=== PATIENT | male | born 1955 | race Caucasian/White ===

== ENCOUNTER → 2018-03-29 07:00 | Outpatient (CLI) | payer OTHER, SELFPAY ==
[2018-03-29 07:20] LABS: Absolute Lymphocyte Count 2.08 X10^3/ul (0.83-4.51); Absolute Neutrophil Count 2.7 X10^3/uL (2.0-7.7); Basophil# 0.06 X10^3/uL; Eosinophil# 0.25 X10^3/uL; Eosinophils% 4.1 % (0-5); Hematocrit 43.2 % (40-54); Hemoglobin 15.3 g/dl (13.0-16.5); Lymphocyte # 2.08 X10^3/ul (4.0); Lymphocyte % 34.2 % (19-41); Mean Corp Hgb Conc 35.4 g/gl (32-36); Mean Corpuscular Hgb 35.3 pg (27.0-32.0); Mean Corpuscular Volume 99.5 fL (80-94); Mean Platelet Vol. 10.7 fl (6.2-12.0); Monocyte# 0.95 X10^3/uL; Monocyte% 15.6 % (0-10); Neutrophil # 2.73 X10^3/uL (2.7-7.7); Neutrophil % 44.8 % (47-70); Platelet Count 202 K/mm3 (150-450); RBC Distribution Width CV 12.3 % (11.6-14.6); RBC Distribution Width SD 44.6 fl (35.1-43.9); Red Blood Count 4.34 M/mm3 (4.6-6.2); White Blood Count 6.1 K/mm3 (4.4-11.0)
[2018-03-29 07:22] LABS: POSITIVE COUNT NO; POSITIVE DIFFERENTIAL NO; POSITIVE MORPHOLOGY NO
== END ==
PROVIDERS: Family Provider Family Medicine; PCP Family Medicine; Visit Provider Family Medicine
DX: I95.1 Orthostatic hypotension (principal)
CPT/HCPCS: 82533; 85025

== ENCOUNTER → 2018-10-15 10:08 | Outpatient (CLI) | payer OTHER, SELFPAY ==
[2018-10-15 11:43] LABS: ALB/GLOB Ratio 0.9 RATIO (0.9-2.4); AST(SGOT) 34 U/L (15-37); Alanine Aminotransfer ALT/SGPT 56 U/L (16-61); Albumin, Serum 3.7 g/dL (3.2-5.0); Alkaline Phosphatase 72 U/L (45-117); Anion Gap 11 (5-15); BUN 11 mg/dL (7-18); BUN/Creat Ratio 11.1 RATIO (10-20); Chloride 102 mmol/L (98-107); Cholesterol 220 mg/dL (200); Creatinine, Serum 0.99 mg/dL (0.70-1.30); EST Glomerular Filtration Rate 80 mL/min (>60); Est Glom Filt Rate - Afr Amer 97 mL/min (>60); Globulin 3.9 g/dL (2.2-4.2); Glucose 105 mg/dL (74-106); High Density Lipoprotein 56 mg/dL; Potassium 4.7 mmol/L (3.5-5.1); Protein, Total 7.6 g/dL (6.4-8.2); Sodium Level 139 mmol/L (136-145); Triglycerides 105 mg/dL; Very Low Density Lipoprotein 21 mg/dL (5-40)
== END ==
PROVIDERS: Family Provider Family Medicine; PCP Family Medicine; Referring Provider Family Medicine; Visit Provider Family Medicine
DX: I10 Essential (primary) hypertension (principal)
CPT/HCPCS: 36415; 80053; 80061

== ENCOUNTER → 2018-11-28 16:07 | Outpatient (CLI) | payer MEDICARE, OTHER, SELFPAY ==
[2018-03-27 16:16] VITALS: BMI 35.6
--- NOTE | 2018-11-28 16:18 | RAD_ITS ---
We are attempting to reach Sanaz Renner to discuss findings. An addendum with communication details will be sent when the communication is complete. STUDY: X-RAY - RIGHT HIP REASON FOR EXAM: Male, 63 years old. Fall one week ago, right hip pain TECHNIQUE: 2 views of the hip. COMPARISON: None. FINDINGS: There is an acute, nondisplaced right femoral subcapital neck fracture. There is no dislocation. The left hip is intact. Remaining osseous structures are intact. Normal visualized superior and inferior pubic rami and ischial tuberosities. RAD/HIP, UNI W/ Pelvis 2-3 Views IMPRESSION: Acute, nondisplaced right femoral subcapital neck fracture. No dislocation. Electronically Signed: Colette Kaba, at 16:42 EDT Tel , Service support ,
== END ==
PROVIDERS: Family Provider Family Medicine; PCP Family Medicine; Referring Provider Family Medicine; Visit Provider Family Medicine
DX: M25.559 Pain in unspecified hip (principal)
CPT/HCPCS: 73502

== ENCOUNTER 2018-11-30 04:44 | Inpatient (IN) | payer MEDICARE, OTHER, SELFPAY ==
[2018-11-30] VITALS (16 sets, daily range): BP systolic 101–156; BP diastolic 60–90; PULSE 49–85; RESP 16–18; TEMP 36.5–36.9; O2SAT 90–97; BMI 36.6; BMI 36.2; BMI 36.3; BMI 35.8
--- NOTE | 2018-11-30 05:08 | EKG12_ITS ---
Test Reason : HIP FX Blood Pressure : / mmHG Vent. Rate : 054 BPM Atrial Rate : 054 BPM P-R Int : 196 ms QRS Dur : 094 ms QT Int : 422 ms P-R-T Axes : 013 000 016 degrees QTc Int : 400 ms Sinus bradycardia Otherwise normal ECG Confirmed by KRISTIN ANTONIO, JAZMYN ([id number]), news videotape editor VIRI EDOUARD ([id number]) on 12/03/2018 11:45:08 AM Referred By: Emanuel Yo Confirmed By:JAZMYN FOSTER MD
--- NOTE | 2018-11-30 05:08 | RAD_ITS ---
STUDY: X-RAY - RIGHT HIP REASON FOR EXAM: Male, 63 years old. Patient fell TECHNIQUE: 2 views of the hip. COMPARISON: None. FINDINGS: There is a mid cervical fracture of the proximal femur with varus deformity. The hip joint looks well maintained Electronically Signed: Kendall Ag MD at 5:55 EDT Tel , Service support , RAD/HIP, UNI W/ Pelvis 2-3 Views
--- NOTE | 2018-11-30 05:08 | RAD_ITS ---
STUDY: X-RAY CHEST REASON FOR EXAM: Male, 63 years old. Cough TECHNIQUE: 1 view COMPARISON: None. FINDINGS: The lungs are clear and expanded. There is no demonstrated pleural abnormality. Normal size heart. Normal mediastinum and simone. Normal visualized pulmonary arteries. Normal visualized aortic arch and descending thoracic aorta. Normal visualized thoracic spine. Normal visualized ribs, clavicles, and shoulders. There is no demonstrated abnormality of the visualized soft tissue structures of the upper abdomen. RAD/Chest 1 View (Portable) IMPRESSION: Normal x-ray examination of the chest. No acute findings in the lungs Electronically Signed: Kendall Ag MD at 5:54 EDT Tel , Service support ,
[2018-11-30 05:30] LABS: Absolute Lymphocyte Count 1.53 X10^3/ul (0.83-4.51); Basophil# 0.05 X10^3/uL; Basophil% 0.8 % (0-1); Eosinophils% 6.7 % (0-5); Hematocrit 45.7 % (40-54); Hemoglobin 15.5 g/dl (13.0-16.5); Lymphocyte # 1.53 X10^3/ul (4.0); Lymphocyte % 25.7 % (19-41); Mean Corp Hgb Conc 33.9 g/gl (32-36); Mean Corpuscular Hgb 34.2 pg (27.0-32.0); Mean Corpuscular Volume 100.9 fL (80-94); Mean Platelet Vol. 10.2 fl (6.2-12.0); Monocyte# 0.96 X10^3/uL; Monocyte% 16.1 % (0-10); Neutrophil # 2.99 X10^3/uL (2.7-7.7); Neutrophil % 50.4 % (47-70); Platelet Count 207 K/mm3 (150-450); RBC Distribution Width CV 12.6 % (11.6-14.6); Red Blood Count 4.53 M/mm3 (4.6-6.2)
[2018-11-30 05:32] LABS: POSITIVE COUNT NO; POSITIVE DIFFERENTIAL NO; POSITIVE MORPHOLOGY NO
[2018-11-30 05:38] LABS: International Normalized Ratio 1.1; Prothrombin Time (Protime)PT. 13.9 SECONDS (11.7-14.9)
--- NOTE | 2018-11-30 05:40 | HP.PCM_ITS ---
Problem List (1) Hip fracture, right Status: Acute Qualifiers: Encounter type: initial encounter Fracture type: closed Qualified Code(s): S72.001A - Fracture of unspecified part of neck of right femur, initial encounter for closed fracture (2) Hyperlipemia Status: Chronic History of Present Illness Date of Admission: 11/30/18 Chief Complaint: right hip fracture on outpatient x-ray The patient is a 63 year old M who presents with right hip fracture on outpatient x-ray. About a week ago while at [place] patient tripped over and fell in his condo while leaving a room to the kitchen. X-ray at urgent care at [place] was unremarkable. Patient saw a specialist at [place] who thought patient may be having hairline fracture. Following pain Patient acquired a cane which he used to walk. Patient continued to have progressively worsening excruciating pain at his right hip. He describes his pain as 10 out of 10. The pain worsens with standing and it improves with lying. His pain is is improved with sitting. He describes his pain as sharp with greatest intensity at the right groin and radiating to his right leg. After the first episode of fall , on a later day patient again lost his balance whiles at the bathroom and fell on the bathtub. When he returned to [place], [place] he saw his PCP who ordered another x-ray. The x-ray showed a fracture of the right hip for which he was referred to an orthopedic surgeon. Later he got a call from his PCPs office to come to the emergency department for the right hip fracture. At the emergency department a repeat x-ray showed mid cervical fracture of the proximal femur with varus deformity. Emergency department doctor discussed the case with Dr. Avila, orthopedic surgeon who is interested in seeing the patient but wanted internal medicine to admit patient. Past Medical History Past Medical History (Chronic Problems): Chronic Problems (Last Updated 11/30/18 @ 06:42 by Isreal Browning MD) Hyperlipemia (Chronic) Medical History: Medical History (Last Reviewed 11/30/18 @ 06:59 by Isreal Browning MD) Hyperlipemia (Chronic) E78.5 HTN (hypertension) I10 Allergies No Known Allergies Allergy (Unverified 11/30/18 04:51) Home Medications: Ambulatory Orders Medication Instructions Recorded Lisinopril [Zestril] 10 mg PO DAILY 11/30/18 Surgical History: Surgical History (Last Reviewed 11/30/18 @ 06:59 by Isreal Browning MD) History of left knee replacement Z96.652 history of broken tail bone Lives: Spouse/ Significant Other Smoking Status: Never smoker - *Family History Maternal Family History: Family History (Last Reviewed 11/30/18 @ 06:59 by Isreal Browning MD) Father Blood clot in vein Mother Heart disease Brother Heart disease Review of Systems Constitutional: Denies: Chills, Fever, Weight Change HEENT: Denies: Head Aches, Sinus Congestion, Sinus Drainage Cardiovascular: Denies: Chest Pain, Palpitations Respiratory: Denies: Cough, Shortness of breath at rest, Sputum production Gastrointestinal: Denies: Abdominal Pain, Nausea, Vomiting Genitourinary: Denies: Dysuria Musculoskeletal: Reports: Joint Pain - R hip, Joint Tenderness - R hip Skin: Denies: Rash, Wounds Neurological: Denies: Numbness, Tingling, Focal weakness Psychiatric: Denies: Anxiety, Depression, Homicidal Ideations, Suicidal Ideations Hematologic/ Lymphatic: Denies: Easy Bruising, Easy Bleeding VTE Information - Inpt Only VTE Present on Admission: No VTE Mechan Device Prophylaxis: SCD's VTE Pharm Prophylaxis ordered?: No Patient Problems: Active and Suspected Problems (Last Updated 11/30/18 @ 06:42 by Isreal Browning MD) Hip fracture, right (Acute) - Physical Exam General: Alert, Oriented x3, Cooperative HEENT: Atraumatic, PERRLA, EOMI, Normocephalic Neck: Supple, No JVD, Negative Carotid Bruits Lungs: Clear to auscultation, Normal air movement Cardiovascular: Regular rate, No murmurs Abdomen: Bowel Sounds Present, Soft, Non Tender Extremities: No edema, Capillary Refill Less than 3 Seconds Skin: No rashes, No breakdown Musculoskeletal: Tenderness - R hip Neurological: Cranial nerves II-XII grossly intact Psych/Mental Status: Normal Affect, Appropriate Vital Signs Temp Pulse Resp BP Pulse Ox 98.4 F 55 L 18 153/76 H 97 11/30/18 04:45 11/30/18 04:45 11/30/18 04:45 11/30/18 04:45 11/30/18 04:45 Oxygen Delivery Method Room Air Weight: 119.12 kg Body Mass Index (BMI) 36.6 Laboratory Tests Past 24 Hrs 11/30/18 11/30/18 11/30/18 05:15 05:15 05:15 WBC 6.0 RBC 4.53 L Hgb 15.5 Hct 45.7 MCV 100.9 H MCH 34.2 H MCHC 33.9 RDW 12.6 RDW Differential 47.0 H Plt Count 207 MPV 10.2 Immature Gran % (Auto) 0.300 Neut % (Auto) 50.4 Lymph % (Auto) 25.7 [place] % (Auto) 16.1 H Eos % (Auto) 6.7 H Baso % (Auto) 0.8 Absolute Neuts (auto) 3.0 Absolute Lymphs (auto) 1.53 Total Counted Not Reportable PT Pending INR Pending Sodium Pending Potassium Pending Chloride Pending Carbon Dioxide Pending Anion Gap Pending BUN Pending Creatinine Pending Est GFR (MDRD) Af Amer Pending Est GFR (MDRD) Non-Af Pending BUN/Creatinine Ratio Pending Glucose Pending Calcium Pending Assessment/Plan All Active Problems (Last Updated 11/30/18 @ 06:42 by Isreal Browning MD) Hip fracture, right (Acute) The patient is a 63 year old M who presents with right hip fracture on outpatient x-ray after a fall and with a confirmed fracture on repeat x-ray on presentation. Acute fracture of neck of femur. Independent review of hip x-ray (11/30/18) confirms fracture of neck of right femur. Review of records of x-ray taken on 11/28/2018 confirmed similar findings as above. Patient reports taking oxycodone at home. Will continue oxycodone as needed and add morphine as needed too. Tylenol as needed for mild pain. So far whiles on oxycodone his last bowel movement was a day before his presentation. His yet bowels yet to move on the day of presentation. Zofran as needed for nausea while on narcotics. We will keep patient n.p.o. and will hydrate with normal saline IV infusion Emergency department doctor ordered a chest x-ray preoperatively for procedure. EKG showed sinus bradycardia which is unchanged from previous EKGs. We will put patient on MedSur telemetry. Patient has no complaint of any chest pain or shortness of breath. He has no any history of cardiac disease except hypertension. By the revised cardiac risk index patient scored 0 points for this moderate risk procedure. His 30-day risk of , NE or cardiac arrest is 3.9%. Orthopedic Surgery consulted. HTN On presentation his blood pressure was not within goal Lisinopril continued Trend blood pressure and adjust blood pressure medication. DVT prophylaxis: SCD for now. Code Visit Inpatient E&M: 89125 Init Hosp L3
[2018-11-30 05:46] LABS: Anion Gap 5 (5-15); BUN 18 mg/dL (7-18); BUN/Creat Ratio 15.9 RATIO (10-20); Calcium,Total 8.7 mg/dL (8.5-10.1); Chloride 102 mmol/L (98-107); Creatinine, Serum 1.13 mg/dL (0.70-1.30); EST Glomerular Filtration Rate 69 mL/min (>60); Est Glom Filt Rate - Afr Amer 84 mL/min (>60); Estimated Creatinine Clearance 69.41 ml/min; Glucose 105 mg/dL (74-106); Potassium 4.6 mmol/L (3.5-5.1); Sodium Level 137 mmol/L (136-145)
--- NOTE | 2018-11-30 05:48 | ED.DCSUM_ITS ---
- ER Visit Summary Date of Service: 11/30/18 Chief Complaint: Right hip fracture History of Present Illness: The patient is a 63 M who presents with a right hip fracture. He had a mechanical fall when he tripped over a curb 1 week ago in [place]. He was seen at an urgent care and x-rays were reported negative. He has been ambulating with a walker since that time. He saw his primary care physician and had repeat x-rays which showed a femoral neck fracture. He was was referred to orthopedics. When orthopedics saw his x-rays he was advised to go to the emergency department to be admitted. His pain is only 5 out of 10. He denies any other injuries. Physical Examination: Afebrile vitals unremarkable Heart regular rate and rhythm Lungs clear Abdomen soft Right lower extremity shortened and rotated Sensation intact to light touch Palpable dorsalis pedis pulses Alert Test Results: EKG shows sinus rhythm at a rate of 54. Repeat hip x-ray, chest x-ray, medical clearance laboratory studies including CBC BMP INR normal. Emergency Department Course and Treatment: Patient declined any analgesics here. I spoke to the orthopedic surgeon who sent him in, Dr. Quinones who notes that he will be out of town and was not transportation dispatcher and has not yet seen this patient so referred to the other orthopedic group. I spoke to Dr. Avila who will see the patient and plans for operative intervention today. Patient admitted under the hospitalist service. Treatment Plan: [] Disposition: Admit Impression: Right hip fracture This note was generated with [employer] dictation software. It may contain incorrect words, spelling, and punctuation that were not noted in review of the chart prior to signing ED Disposition - Plan for ED Patient: Referrals: Emanuel Yo MD [Primary Care Provider] -
[2018-11-30] MEDS: Lactated Ringers 1,000 ML 75 ML IV ×2 (06:55→19:31)
[2018-11-30] MEDS: Morphine 2 MG/ML Syringe IV (10:01)
--- NOTE | 2018-11-30 11:18 | CASEMGMT ---
Addendum entered and electronically signed by Vivian Russell 11/30/18 12:03: Reviewed and approve [employer] student documentation below. -CORTEZ Garner, SUPERVISOR AREA Original Note: Social Work Note Date and Time of Referral:11/30/18 1000am Referred By: Nurse Executive Cyber Leader MS3 Date and Time of Intervention: 11/30/18 1030am Reason for referral: hip fracture Informant: medical record and patient Judson Martinez Personal Status Living arrangements: lives with at home Education: patient reported to have associates degree and able to read, write, and understand. Employment: self-employed seymour : no service history Family Dynamics/Relationships: patient is . no hsitory of DV. patients had 4 daughters and 1 son. Support System: patient identified entire family as support system Medical History and Functioning Medical History and reason for admission: hip fracture; previous left knee replacement; genetic factor 5 blood clotting issue. ADLs prior to admission: independent with no equipment needed. Able to drive regularly. Programs/Agencies involved: patient is not involved with any agencies/programs. Substance Abuse History and Current Pattern of Use: patient identified self as non-user illicit drugs and uses alcohol socially. Alcohol: social user Marijuana: denies Heroin: denies Methamphetamine: denies Cocaine: denies prescription drugs: denies tobacco: denies Mental Health History and Current Cognitive Status Diagnoses: patient has not received any mental health diagnoses. Current Stressors: patient denied any current stressors at this time. SI or HI: patient denied any history past or present of suicidal thoughts/plans/attempts Medications: was not addressed with patient. Current cognitive/Mental Status: patient is orientated to person, place, situation, and time. Mood and affect were stable, calm , and pleasant. Patient engaged in conversation and answered questions appropriately. Motor activity was limited as patient was laying in bed. Speech and thought process were appropriate. Patient's identified concerns: patient has no concerns at this time. Interventions: surgery is planned for patient. PT/OT assessment to follow. Patient and family did not request any other needs at this time. Plan: Patient plans to undergo surgery. Patient is open to rehab if needed and will wait to see how PT/OT assessment goes. Patient mentioned preference for outpatient due to experience with knee replacement but open to both. -Jillian Mcmahon, [employer] Student Service Liaison Representative.
--- NOTE | 2018-11-30 11:56 | CASEMGMT ---
Social Work Note LEXY spoke with Ashly, social welfare clerk student who states pt is agreeable to [facility] at discharge. LEXY placed a call to Yolande with [facility] who states she is able to accept pt on [facility] Monday. Pt is scheduled to have surgery today and will work with PT/OT after surgery. This worker will be at [facility] tomorrow and will update pt on acceptance to [facility] and confirm pt is still agreeable to [facility]. Plan: [facility] Monday Evie Lau BISQUE BRUSHER, SOLUTIONS ANALYST
[2018-11-30] MEDS: Lisinopril 10 MG Tablet PO (14:55)
--- NOTE | 2018-11-30 15:00 | RAD_ITS ---
STUDY: X-RAY - RIGHT HIP REASON FOR EXAM: Male, 63 years old. Hip replacement TECHNIQUE: 2 C-arm views of the hip. COMPARISON: None. FINDINGS: 2 views from the OR show a right hip arthroplasty with a grossly satisfactory appearance on this single frontal projection. Correlate with procedure note. Electronically Signed: Denton Elder MD at 14:02 EDT , Service support , RAD/Hip 1 view with Pelvis
--- NOTE | 2018-11-30 16:26 | CON.PCM_ITS ---
Problem List (1) Hypertension Status: Chronic Reason for Consult Date of Consultation: 11/30/18 Reason for Consultation: Right hip pain. Requested by Dr. Steinberg History of Present Illness: The patient is a 63 year old M with history of hypertension. He does have diet- controlled hyperlipidemia takes no medications. Presents today after being on vacation last week in [place] where he sustained a fall. Patient was evaluated in the emergency department and found to have negative x-rays per reports. He subsequently fell since returning home. He was seen by his primary care doctor in the office who ordered new x-rays. Found to have a femoral neck fracture. Patient was instructed by his PCP to follow-up with orthopedics. Due to the pain and inability to ambulate he presented to the emergency department. Patient reports 10 out of 10 pain with ambulation pain is relieved with bed rest and medications. He has been using a walker or a cane for ambulation. Prior to this he is otherwise been healthy with no activity limitations. He remains an active individual. He does have obesity. He lives at home with his . Past Medical History Past Medical History (Chronic Problems): Chronic Problems (Last Reviewed 11/30/18 @ 06:59 by Isreal Browning MD) Hypertension (Chronic) Hyperlipemia (Chronic) Medical History: Medical History (Last Reviewed 11/30/18 @ 06:59 by Isreal Browning MD) Hyperlipemia (Chronic) E78.5 HTN (hypertension) I10 Allergies No Known Allergies Allergy (Unverified 11/30/18 04:51) Home Medications: Ambulatory Orders Medication Instructions Recorded Lisinopril [Zestril] 10 mg PO DAILY 11/30/18 Surgical History: Surgical History (Last Reviewed 11/30/18 @ 06:59 by Isreal Browning MD) History of left knee replacement Z96.652 history of broken tail bone Surgical History: no surgical history, - Psychiatric History: No pertinent psych hx Lives: Spouse/ Significant Other Smoking Status: Never smoker Tobacco Use: Non-smoker Alcohol: Occasional Drugs: None - *Family History Maternal Family History: Family History (Last Reviewed 11/30/18 @ 06:59 by Isreal Browning MD) Father Blood clot in vein Mother Heart disease Brother Heart disease Review of Systems Constitutional: Denies: Chills, Fever, Weight Change HEENT: Denies: Head Aches, Sinus Congestion, Sinus Drainage Cardiovascular: Denies: Chest Pain, Palpitations Respiratory: Denies: Cough, Shortness of breath at rest, Sputum production Gastrointestinal: Denies: Abdominal Pain, Nausea, Vomiting Genitourinary: Denies: Dysuria Musculoskeletal: Reports: Joint Pain, Joint Tenderness Skin: Denies: Rash, Wounds Neurological: Denies: Numbness, Tingling, Focal weakness Psychiatric: Denies: Anxiety, Depression, Homicidal Ideations, Suicidal Ideations Hematologic/ Lymphatic: Denies: Easy Bruising, Easy Bleeding Patient Problems: Active and Suspected Problems (Last Reviewed 11/30/18 @ 06:59 by Isreal Browning MD) Hip fracture, right (Acute) Objective: Hip x-rays of the right hip from November 28 and November 30 show transcervical femoral neck fracture with progressive displacement. Hip joint shows joint space narrowing with subchondral sclerosis, marginal osteophyte formation and a subchondral cyst on the lateral weightbearing portion of the acetabulum. - Physical Exam General: Alert, Oriented x3, Cooperative Extremities: - - Right lower extremity: Skin clean, dry, and intact. Limb is shortened and externally rotated Motor is intact dorsiflexion, EHL and plantar flexion. Sensation is intact to light touch saphenous, linnette,l superficial peroneal, deep peroneal and tibial distributions. Calves are soft and supple. Vital Signs Temp Pulse Resp BP Pulse Ox 98.5 F 58 L 16 140/80 H 93 11/30/18 14:40 11/30/18 14:50 11/30/18 14:40 11/30/18 14:40 11/30/18 14:40 Oxygen Delivery Method Room Air Weight: 256 lb 9.889 oz Body Mass Index (BMI) 35.8 Intake and Output for Last 24 Hours 11/28/18 11/29/18 11/30/18 23:59 23:59 23:59 Output Total 650 / 650 Balance -650 / -650 Laboratory Tests Past 24 Hrs 11/30/18 11/30/18 11/30/18 05:15 05:15 05:15 WBC 6.0 RBC 4.53 L Hgb 15.5 Hct 45.7 MCV 100.9 H MCH 34.2 H MCHC 33.9 RDW 12.6 RDW Differential 47.0 H Plt Count 207 MPV 10.2 Immature Gran % (Auto) 0.300 Neut % (Auto) 50.4 Lymph % (Auto) 25.7 [place] % (Auto) 16.1 H Eos % (Auto) 6.7 H Baso % (Auto) 0.8 Absolute Neuts (auto) 3.0 Absolute Lymphs (auto) 1.53 Total Counted Not Reportable PT 13.9 INR 1.1 Sodium 137 Potassium 4.6 Chloride 102 Carbon Dioxide 30.0 Anion Gap 5 BUN 18 Creatinine 1.13 Estim Creat Clear Calc 69.41 Est GFR (MDRD) Af Amer 84 Est GFR (MDRD) Non-Af 69 BUN/Creatinine Ratio 15.9 Glucose 105 Calcium 8.7 Assessment/Plan All Active Problems (Last Reviewed 11/30/18 @ 06:59 by Isreal Browning MD) Hip fracture, right (Acute) Right hip primary osteoarthritis with acute displaced transcervical femoral neck fracture. Natural history of the disease processes and treatment options were discussed the patient. Based on patient's displacement, age, activity level and ante cedent osteoarthritis I have recommended a total hip replacement done acutely due to the displaced femoral neck fracture. Risks and benefits of the procedure were discussed the patient including but not limited to blood loss, DVTs, PEs, neurovascular damage, infection, general risk of anesthesia including loss of life. I did explain to the patient that in the face of a fracture risk of dislocation is higher with total hip replacement. He demonstrates an understanding wishes to proceed. He is able signed informed consent and medical clearance has been obtained. Plan is to proceed with surgery. Qiana Woods on- call to the operating room. [facility] Office:
[2018-11-30] MEDS: Cefazolin 2 GM in 0.9% Normal Saline 100 ML IV (16:40)
--- NOTE | 2018-11-30 17:11 | PCM.HOSP.N ---
Hospitalist Note Patient was seen and examined today, he will undergo ORIF of his right hip today. Patient appears medically stable at this time, I talked with his family also who were in the room today. Patient will be monitored postop, he does take medications for blood pressure.
--- NOTE | 2018-11-30 18:14 | PCM.OPRPT ---
Problem List (1) Hypertension Status: Chronic Report of Operation Date of Procedure: 11/30/18 Pre-Operative Diagnosis: Right hip primary osteoarthritis. Right acute transcervical femoral neck fracture Post-Operative Diagnosis: Right hip primary osteoarthritis. Right acute transcervical femoral neck fracture Surgery/Procedure Performed:: Right direct anterior total hip replacement Description of Surgical Findings:: Stable hip with equal leg length regional vice president life sales: Hilda Mackenzie Type of Anesthesia:: Spinal Anesthesiologist: Apurva Choi Special Medications: 2 g Ancef, 2 g of TXA in the wound at completion of case, joint cocktail (5 mg Duramorph, 30 mL of 0.5% Ropivicaine, 1000 units of epinephrine, 30 mg of Toradol) Specimen's removed: Bony cuts Estimated Blood Loss (mL): 250 Fluids Replaced: 2 L crystalloid Description of Procedure: Components used: 1. Accolade 2 Shaheen femoral stem size 7 127? 2. Shaheen trident 2 acetabular shell size 52 mm 3. Shaheen X3 polyethylene e 4. Shaheen Biolox delta 36mm, -2.5mm femoral head Brief history operative indications: 63 yo M who fell 1 week ago in [place] and sustained a subsequent fall. Presented to the PCPs office and had a displaced transcervical femoral neck fracture. X-rays were also consistent with osteoarthritis including joint space narrowing, osteophyte formation and subchondral cysts. Total hip replacement was discussed with the patient with risks and benefits including but not limited to blood loss, DVTs, PEs, neurovascular damage, dislocation, general risks of anesthesia including loss of life. Patient demonstrated an understanding medical clearance is obtained the patient was consented for surgery. Procedure: On the date of procedure the patient's R hip was marked in the preoperative area. Patient was then taken back to the operating room where anesthesia assumed control of the C-spine and airway and administered anesthetic. Patient was transferred to the operating table and placed in the supine position. The hips were placed at the break of the bed and a sacral bump was placed. The R lower extremity was then prepped out in a sterile fashion using chlorhexidine while the surgeon scrubbed. The PA was vital in the positioning of the patient. Upon reentering the room the R lower extremity was draped in the standard orthopedic fashion and the incision was marked. A timeout was called and everyone agreed upon the side, the site, the procedure be performed, antibody given, and patient's identity. At this time incision was made through skin, subcutaneous tissue, and fat down to fascia. The fascia was then incised and the TFL was retracted laterally. A retractor was placed on the lateral border of the femoral neck. Attention was directed to the inferior portion of the approach and all crossing vessels were identified and appropriately coagulated. A retractor was then placed on the medial portion of the femoral neck. The anterior capsule was then cleared of all soft tissue and then H shaped capsulotomy was made. The retractors were then placed inside the capsule. The femoral neck was identified and a cleanup cut was made. At this time a power corkscrew was used to remove the femoral head. Attention was then turned toward the acetabulum where the soft tissues were appropriately retracted and the acetabulum was sequentially reamed to 52 mm. A 52 mm cup was then selected and impacted into place. Acetabular liner was impacted into place and locking mechanism was verified. The position of the acetabular cup was then verified under live fluoroscopy. Attention was then turned to the femur. Soft tissue releases on the medial and lateral femoral neck were appropriately done, the leg was externally rotated and lateralized. A Dorado retractor was placed medially and proximally to the greater trochanter this allowed appropriate visualization and exposure of the femoral canal. Rongeour was then used to remove excess lateral bone. A canal finder and entry broach were used to open the proximal canal. Once we verified we were down the femoral canal we subsequently broached up to a size 7 femur. The appropriate neck was placed in the previously selected head was trialed with a -2.5 mm neck. Traction was pulled and the hip was reduced with internal rotation. Once it was appropriately reduced and stability was checked. There was minimal shuck, equal leg lengths and appropriate stability with hyperextension and external rotation as well as with 90? flexion and internal rotation. Fluoroscopy was then also used to verify the position of the components and leg lengths using the contralateral side for comparison. The trial components were then dislocated the proximal femur was again exposed and the components were removed from the wound. The final components were verified and opened. The wound was copiously irrigated out with normal saline. The acetabulum was checked for any residual debris. The final components were placed and impacted. Traction and internal rotation were again used to reduce the hip. After adequate reduction the hip remained stable with appropriate leg lengths. The final components were once again checked with live fluoroscopy and were found to be satisfactory. The wound was then copiously irrigated with normal saline once more, and hemostasis was obtained. Closure was then done using #1 Vicryl runner to close the fascia. A 2-0 vicryl interuppted sutures were used to close the subcutaneous skin. A 3-0 Monocryl and Steri-Strips were used for final skin closure. A Silverlon dressing was placed. Patient was awakened by anesthesia and transferred to the [facility]. Patient was then transferred to the PACU for recovery. Postoperative plan: Patient will get 24 hours postop antibiotics. Patient will get in-house physical therapy and will be weight-bear as tolerated. Patient will follow up in office in 2 weeks for a wound check and x-rays. Grafts/Implants Used: Shaheen Trident 2, Accolade 2 - Complications No intraoperative complications - Admit VTE Documentation VTE Present on Admission: No VTE Mechan Device Prophylaxis: Thigh High GRANT Hose VTE Pharm Prophylaxis ordered?: Yes
[2018-11-30] MEDS: Lactated Ringers 1,000 ML 999 ML IV (18:20)
[2018-11-30] MEDS: Scopolamine 1mg/72hr Patch 1 PATCH TD (18:52)
--- NOTE | 2018-11-30 19:00 | RAD_ITS ---
STUDY: X-RAY - RIGHT HIP REASON FOR EXAM: Male, 63 years old. Postop TECHNIQUE: 2 views of the hip. COMPARISON: November 28, 2018 FINDINGS: Total right hip replacement since the previous study. Hardware components are well aligned. Post surgical changes in the adjacent soft tissue. RAD/Hip Min 2 Views (Portable) IMPRESSION: Status post total replacement of the hip with post surgical changes. Electronically Signed: Loy Argueta DO at 19:43 EDT Tel [phone], Service support ,
[2018-11-30] MEDS: Senna/Docusate Sodium 1 Tablet 2 TABLET PO (22:17)
[2018-11-30] MEDS: Acetaminophen 500 MG Tablet 1000 MG PO (22:18)
[2018-12-01] VITALS (7 sets, daily range): BP systolic 127–159; BP diastolic 72–88; PULSE 65–78; RESP 18; TEMP 36.8–37.9; O2SAT 92–98; BMI 36.3
[2018-12-01] MEDS: Cefazolin 1 GM/50 ML BAG IV ×2 (00:23→07:48)
[2018-12-01] MEDS: Ketorolac 15 MG/ML Vial IV (00:29)
[2018-12-01] MEDS: 0.9% NaCl Peripheral Flush Adult/Peds IV (00:29)
[2018-12-01] MEDS: oxyCODONE 5 MG Tablet PO ×2 (02:13→10:22)
[2018-12-01] MEDS: Acetaminophen 500 MG Tablet 1000 MG PO (05:44)
[2018-12-01 07:07] LABS: Absolute Lymphocyte Count 0.99 X10^3/ul (0.83-4.51); Absolute Neutrophil Count 5.9 X10^3/uL (2.0-7.7); Basophil# 0.04 X10^3/uL; Basophil% 0.5 % (0-1); Eosinophil# 0.23 X10^3/uL; Eosinophils% 2.8 % (0-5); Hematocrit 40.5 % (40-54); Hemoglobin 13.5 g/dl (13.0-16.5); Lymphocyte # 0.99 X10^3/ul (4.0); Lymphocyte % 11.9 % (19-41); Mean Corp Hgb Conc 33.3 g/gl (32-36); Mean Corpuscular Hgb 34.5 pg (27.0-32.0); Mean Corpuscular Volume 103.6 fL (80-94); Mean Platelet Vol. 10.5 fl (6.2-12.0); Monocyte# 1.09 X10^3/uL; Monocyte% 13.1 % (0-10); Neutrophil # 5.93 X10^3/uL (2.7-7.7); Neutrophil % 71.3 % (47-70); Platelet Count 200 K/mm3 (150-450); RBC Distribution Width SD 44.5 fl (35.1-43.9); Red Blood Count 3.91 M/mm3 (4.6-6.2); White Blood Count 8.3 K/mm3 (4.4-11.0)
--- NOTE | 2018-12-01 07:17 | PCM.PN.ORT ---
Patient Problems: Active and Suspected Problems (Last Reviewed 11/30/18 @ 06:59 by Israel Browning MD) Hip fracture, right (Acute) Subjective: The patient was sitting in bed upon examination. Patient denies any chest pain, shortness of breath, dizziness, lightheadedness, nausea or vomiting, or calf pain. Pain is controlled on medications. No adverse overnight events. Patient is doing very well this morning. Patient has already been up walking and states pain is very well controlled. Patient sustained a femoral neck fracture which required surgical intervention. Patient has medical history pertinent for hypertension and sleep apnea. Objective: Vital signs stable and temperature currently 99.8. Patient is able to plantarflex and dorsiflex actively. Sensation is intact to light touch to saphenous, sural, superficial and deep peroneal, and tibial distribution. Dressing is normal drainage over middle one third otherwise clean dry and intact Negative Homans bilaterally, negative signs and symptoms of DVT. - Physical Exam General: Alert, Oriented x3, Cooperative, No apparent distress Vital Signs Temp Pulse Resp BP Pulse Ox 99.8 F H 65 18 142/84 H 94 12/01/18 05:42 12/01/18 05:42 12/01/18 05:42 12/01/18 05:42 12/01/18 05:42 Oxygen Delivery Method Room Air Weight: 116.4 kg Body Mass Index (BMI) 35.8 Intake and Output for Last 24 Hours 11/29/18 11/30/18 12/01/18 23:59 23:59 23:59 Intake Total 3100 / 3100 1970 / 1970 Output Total 650 / 650 625 / 625 Balance 2450 / 2450 1346 / 1346 Laboratory Tests Past 24 Hrs 12/01/18 12/01/18 06:35 06:35 WBC Pending RBC Pending Hgb Pending Hct Pending MCV Pending MCH Pending MCHC Pending RDW Pending RDW Differential Pending Plt Count Pending Neut % (Auto) Pending Absolute Neuts (auto) Pending Total Counted Pending Sodium Pending Potassium Pending Chloride Pending Carbon Dioxide Pending Anion Gap Pending BUN Pending Creatinine Pending Est GFR (MDRD) Af Amer Pending Est GFR (MDRD) Non-Af Pending BUN/Creatinine Ratio Pending Glucose Pending Calcium Pending Medical Necessity - Tobacco Use Smoking Status: Never smoker Tobacco Use: Non-smoker Assessment/Plan All Active Problems (Last Reviewed 11/30/18 @ 06:59 by Isreal Browning MD) Hip fracture, right (Acute) 1. S/P right direct anterior total hip arthroplasty POD #1 2. Continue Pain Medications: Tylenol and OxyIR 3. DVT Prophylaxis: Aspirin 81 mg twice daily with food for 4 weeks postoperatively 4. PT/OT: Weightbearing as tolerated 5. H & H: Currently pending, asymptomatic 6. Encouraged Incentive Spirometry 7. Continue postoperative medical management per medicine: Case was discussed with hospitalist 8. Disposition: Plan will be for discharge home today if patient tolerates physical therapy and pain is well controlled. Patient will require calling the office on Monday to schedule a 2-week postoperative visit as well as outpatient physical therapy. He will continue with Tylenol and oxycodone for pain control. Continue with aspirin for DVT prophylaxis. Patient can remove dressing 5 days postoperatively. Able to shower beginning today as long his dressing is intact to the skin. Continue with ice and elevation right lower extremity. Prescriptions will be attached to the chart.
[2018-12-01 07:20] LABS: Anion Gap 7 (5-15); BUN 16 mg/dL (7-18); BUN/Creat Ratio 15.7 RATIO (10-20); Calcium,Total 8.5 mg/dL (8.5-10.1); Chloride 101 mmol/L (98-107); Creatinine, Serum 1.02 mg/dL (0.70-1.30); EST Glomerular Filtration Rate 78 mL/min (>60); Est Glom Filt Rate - Afr Amer 94 mL/min (>60); Glucose 111 mg/dL (74-106); Potassium 4.8 mmol/L (3.5-5.1); Sodium Level 137 mmol/L (136-145)
--- NOTE | 2018-12-01 07:24 | PCM.DC.THR ---
Discharge Diet: No Restrictions Discharge Activity: May Not Drive - while taking narcotic pain medications. May shower in (days): 1 - Okay to shower if dressing is intact to the skin, turned dressing away from water Ice area for (Minutes): 20 - Every 1-2 hours while awake Weight Bearing Status: Weight bearing as tolerated Elevate: Operative Extremity Additional Activity Instructions:: Wear elastic stockings for 2 weeks. DO NOT use alcohol with narcotic pain medication. DO NOT make important decisions while taking narcotic medication. If you have problems with taking your medication (rash, itching, nausea, etc.) call the office at once. Call your doctor if your incision/area has: Increased Pain/ Swelling, Increased Redness, Foul Smelling Discharge Call your doctor if you observe: Fever of 101 or Higher Remove Dressing in (days):: 4 - Okay to remove dressing on December 05, 2018 Additional Instructions: Patient will require 2-week follow-up with [facility]: Patient instructed to contact our office to schedule follow-up on December 13 or December 14 with either Hawk Pérez Pa-C or Dr. Gil Avila. Office number is [phone] Okay to remove dressing on December 05, 2018. After removal of dressing only use soap and water for cleansing. No ointments, salves, Neosporin, lotion on the incision for 6 weeks postoperatively Wear GRANT hose for 2 weeks postoperatively, okay to take off at night but must be on during the day. Tylenol primarily for pain control. Use oxycodone for breakthrough pain. Aspirin 81 mg twice daily for 4 weeks postoperatively for DVT prophylaxis. Continue with famotidine for the 30 days while on aspirin. Currently using meloxicam: Take twice a day with food. Do not take any other anti-inflammatories while on meloxicam (Mobic) Allergies/Adverse Reactions: Allergies No Known Allergies Allergy (Unverified 11/30/18 04:51) Medications to take at Discharge Lisinopril [Zestril] 10 mg PO DAILY 11/30/18 Acetaminophen [Tylenol] 1,000 mg PO Q8 #100 tab 12/01/18 Aspirin [Aspirin, Baby] 81 mg PO BIDCM #60 tab.chew 12/01/18 Famotidine [Pepcid] 20 mg PO DAILY #30 tab 12/01/18 Meloxicam [Mobic] 7.5 mg PO BID #60 tab 12/01/18 Oxycodone [Oxyir] 5 - 10 mg PO Q4H PRN PRN 5 Days #60 tab 12/01/18 Senna/Docusate Sodium [Senokot-S] 2 tab PO BID #20 tab 12/01/18 The following prescriptions were given: Oxycodone [Oxyir] 5 - 10 mg PO Q4H PRN PRN 5 Days #60 tab PRN Reason: Mod-Severe Pain () Acetaminophen [Tylenol] 1,000 mg PO Q8 #100 tab Famotidine [Pepcid] 20 mg PO DAILY #30 tab Aspirin [Aspirin, Baby] 81 mg PO BIDCM #60 tab.chew Meloxicam [Mobic] 7.5 mg PO BID #60 tab Senna/Docusate Sodium [Senokot-S] 2 tab PO BID #20 tab Primary Care Physician: Emanuel Yo MD [Primary Care Provider] - Test Results: Test results from this visit will be discussed in further detail at your follow-up appointment, if applicable. Please Follow Up With: Hawk Pérez PA-C When: will need to call office @ [phone] to schedule for 12/13/18 or 12/14/18 Please Follow Up With: Physical Therapy When: will need to call office to schedule out-patient physical therapy
--- NOTE | 2018-12-01 07:28 | DCINST_ITS ---
Discharge Diet: No Restrictions Discharge Activity: May Not Drive - while taking narcotic pain medications. May shower in (days): 1 - Okay to shower if dressing is intact to the skin, turned dressing away from water Ice area for (Minutes): 20 - Every 1-2 hours while awake Weight Bearing Status: Weight bearing as tolerated Elevate: Operative Extremity Additional Activity Instructions:: Wear elastic stockings for 2 weeks. DO NOT use alcohol with narcotic pain medication. DO NOT make important decisions while taking narcotic medication. If you have problems with taking your medication (rash, itching, nausea, etc.) call the office at once. Call your doctor if your incision/area has: Increased Pain/ Swelling, Increased Redness, Foul Smelling Discharge Call your doctor if you observe: Fever of 101 or Higher Remove Dressing in (days):: 4 - Okay to remove dressing on December 05, 2018 Additional Instructions: Patient will require 2-week follow-up with [facility]: Patient instructed to contact our office to schedule follow-up on December 13 or December 14 with either Hawk Pérez Pa-C or Dr. Gil Avila. Office number is [phone] Okay to remove dressing on December 05, 2018. After removal of dressing only use soap and water for cleansing. No ointments, salves, Neosporin, lotion on the incision for 6 weeks postoperatively Wear GRANT hose for 2 weeks postoperatively, okay to take off at night but must be on during the day. Tylenol primarily for pain control. Use oxycodone for breakthrough pain. Aspirin 81 mg twice daily for 4 weeks postoperatively for DVT prophylaxis. Continue with famotidine for the 30 days while on aspirin. Currently using meloxicam: Take twice a day with food. Do not take any other anti-inflammatories while on meloxicam (Mobic) Allergies/Adverse Reactions: Allergies No Known Allergies Allergy (Unverified 11/30/18 04:51) Medications to take at Discharge Lisinopril [Zestril] 10 mg PO DAILY 11/30/18 Acetaminophen [Tylenol] 1,000 mg PO Q8 #100 tab 12/01/18 Aspirin [Aspirin, Baby] 81 mg PO BIDCM #60 tab.chew 12/01/18 Famotidine [Pepcid] 20 mg PO DAILY #30 tab 12/01/18 Meloxicam [Mobic] 7.5 mg PO BID #60 tab 12/01/18 Oxycodone [Oxyir] 5 - 10 mg PO Q4H PRN PRN 5 Days #60 tab 12/01/18 Senna/Docusate Sodium [Senokot-S] 2 tab PO BID #20 tab 12/01/18 The following prescriptions were given: Oxycodone [Oxyir] 5 - 10 mg PO Q4H PRN PRN 5 Days #60 tab PRN Reason: Mod-Severe Pain () Acetaminophen [Tylenol] 1,000 mg PO Q8 #100 tab Famotidine [Pepcid] 20 mg PO DAILY #30 tab Aspirin [Aspirin, Baby] 81 mg PO BIDCM #60 tab.chew Meloxicam [Mobic] 7.5 mg PO BID #60 tab Senna/Docusate Sodium [Senokot-S] 2 tab PO BID #20 tab Primary Care Physician: Emanuel Yo MD [Primary Care Provider] - Test Results: Test results from this visit will be discussed in further detail at your follow- up appointment, if applicable. Please Follow Up With: Hawk Pérez PA-C When: will need to call office @ [phone] to schedule for 12/13/18 or 12/14/18 Please Follow Up With: Physical Therapy When: will need to call office to schedule out-patient physical therapy
[2018-12-01 07:40] LABS: POSITIVE COUNT NO; POSITIVE DIFFERENTIAL NO; POSITIVE MORPHOLOGY NO
[2018-12-01] MEDS: Aspirin 81 MG TAB.CHEW PO (07:49)
--- NOTE | 2018-12-01 10:22 | DCINST_ITS ---
- Discharge Diagnoses Current Active Problems: Current Active and Chronic Problems (Last Reviewed 11/30/18 @ 06:59 by Isreal Browning MD) Hip fracture, right (Acute) Hypertension (Chronic) You will use the following diet at home:: No restrictions Your food should be the consistency of: Regular Your liquids should be the consistency of: Regular/Thin Discharge Activity: May Not Drive - while taking narcotic pain medications. May shower in (days): 1 - Okay to shower if dressing is intact to the skin, turned dressing away from water Ice area for (Minutes): 20 - Every 1-2 hours while awake Weight Bearing Status: Weight bearing as tolerated Keep extremity elevated above heart level: Operative Extremity Additional Activity Instructions:: Wear elastic stockings for 2 weeks. DO NOT use alcohol with narcotic pain medication. DO NOT make important decisions while taking narcotic medication. If you have problems with taking your medication (rash, itching, nausea, etc.) call the office at once. Call your doctor if your incision/area has: Increased Pain/ Swelling, Increased Redness, Foul Smelling Discharge Call your doctor if you observe: Fever of 101 or Higher Remove Dressing in (days):: 4 - Okay to remove dressing on December 05, 2018 Allergies/Adverse Reactions: Allergies No Known Allergies Allergy (Unverified 11/30/18 04:51) Medications to take at Discharge Lisinopril [Zestril] 10 mg PO DAILY 11/30/18 Acetaminophen [Tylenol] 1,000 mg PO Q8 #100 tab 12/01/18 Aspirin [Aspirin, Baby] 81 mg PO BIDCM #60 tab.chew 12/01/18 Famotidine [Pepcid] 20 mg PO DAILY #30 tab 12/01/18 Meloxicam [Mobic] 7.5 mg PO BID #60 tab 12/01/18 Oxycodone [Oxyir] 5 - 10 mg PO Q4H PRN PRN 5 Days #60 tab 12/01/18 Senna/Docusate Sodium [Senokot-S] 2 tab PO BID #20 tab 12/01/18 The following prescriptions were given: Oxycodone [Oxyir] 5 - 10 mg PO Q4H PRN PRN 5 Days #60 tab PRN Reason: Mod-Severe Pain (-06/20) Acetaminophen [Tylenol] 1,000 mg PO Q8 #100 tab Famotidine [Pepcid] 20 mg PO DAILY #30 tab Aspirin [Aspirin, Baby] 81 mg PO BIDCM #60 tab.chew Meloxicam [Mobic] 7.5 mg PO BID #60 tab Senna/Docusate Sodium [Senokot-S] 2 tab PO BID #20 tab Primary Care Physician: Emanuel Yo MD [Primary Care Provider] - Please follow up with your Primary Care Physician in: in 3 weeks Test Results: Test results from this visit will be discussed in further detail at your follow- up appointment, if applicable. Please Follow Up With: Hawk Pérez PA-C When: will need to call office @ [phone] to schedule for 12/13/18 or 12/14/18 Please Follow Up With: Physical Therapy When: will need to call office to schedule out-patient physical therapy
[2018-12-01] MEDS: Famotidine 20 MG Tablet PO (10:23)
[2018-12-01] MEDS: Senna/Docusate Sodium 1 Tablet 2 TABLET PO (10:24)
[2018-12-01] MEDS: Lisinopril 10 MG Tablet PO (10:24)
[2018-12-01] MEDS: Meloxicam 7.5 MG Tablet PO (10:25)
--- NOTE | 2018-12-01 10:46 | CASEMGMT ---
Addendum entered by Evie Lau 12/01/18 11:00: SW placed a call to KADE Sandoval at and informed her that pt will be discharged home today. Original Note: Social Work Note SW reviewed documentation. Pt is to discharge home today with outpatient therapy. SW met with pt to confirm discharge plans. SW introduced self and role at [facility]. Pt is alert and orientated x4. Pt confirms that he is feeling well and would like to discharge home today. Pt states that Uriel OJEDA saw him this morning and mentioned to pt to call [facility] to arrange for outpatient therapy. Pt confirms that he will be calling office to arrange for outpatient therapy, states he has a walker at home. Denied additional needs or concerns at this time. Plan: Pt to discharge home and call [facility] to schedule outpatient therapy Evie Lau SUPPORT SERVICE TECH, INTERACTIVE MEDIA DESIGNER
--- NOTE | 2018-12-02 17:16 | PCM.DC.SUM ---
Discharge Date and Diagnosis Date of Admission: 11/30/18 Date of Discharge: 12/01/18 - Primary Discharge Diagnosis #1 femoral neck fracture-subacute #2 hypertension #3 osteoarthritis - Secondary Discharge Diagnosis Chronic Problems (Last Reviewed 11/30/18 @ 06:59 by Isreal Browning MD) Hypertension (Chronic) Hyperlipemia (Chronic) Hospital Course and Treatment Operations: - - Right direct anterior total hip replacement Procedures: None Summary of Care Provided: The patient is a 63 year old M who was seen in the emergency room at [facility] after the patient had x-rays of his right hip due to right hip pain from a fall approximately a week prior. Patient's right hip was x-rayed at that time when the patient fell, this x-ray was read out as negative. Repeat x-ray in [place] revealed the presence of a femoral neck fracture, patient was referred to orthopedics and orthopedics advised patient to go to the emergency room for evaluation. Patient's hip x-ray was repeated in the emergency room, it was noted again that the patient had a femoral neck fracture and he was admitted to [place] [address] and seen in consultation by orthopedic surgery. Patient underwent surgery on 11/30/18 and had a total hip replacement. Patient did well postop and there were no complications. On 12/01/18, patient was seen and examined: On examination he appeared in good health and spirits. Vital signs as documented. Skin warm and dry and without overt rashes. Neck without JVD. Lungs clear. Heart exam notable for regular rhythm, normal sounds and absence of murmurs, rubs or gallops. Abdomen unremarkable and without evidence of organomegaly, masses, or abdominal aortic enlargement. Extremities nonedematous. Neuro: Cranial nerves II through XII are grossly intact, no focal motor deficits were noted, sensation to light touch and pinprick intact. Psych: Patient is alert and oriented x3, he does not appear anxious or depressed On 12/01/18, patient was discharged home in stable condition - Physical Exam Vital Signs Temp Pulse Resp BP Pulse Ox 98.9 F 74 18 138/74 H 98 12/01/18 13:00 12/01/18 13:00 12/01/18 13:00 12/01/18 13:00 12/01/18 13:00 Oxygen Delivery Method Room Air Weight: 116.4 kg Body Mass Index (BMI) 35.8 Intake and Output for Last 24 Hours 11/30/18 12/01/18 12/02/18 23:59 23:59 23:59 Intake Total 3100 / 3100 2921 / 2921 Output Total 650 / 650 1175 / 1175 Balance 2450 / 2450 1746 / 1746 Discharge Diet: No Restrictions Discharge Activity: May Not Drive - while taking narcotic pain medications. May shower in (days): 1 - Okay to shower if dressing is intact to the skin, turned dressing away from water Ice area for (Minutes): 20 - Every 1-2 hours while awake Weight Bearing Status: Weight bearing as tolerated Keep extremity elevated above heart level: Operative Extremity Additional Activity Instructions:: Wear elastic stockings for 2 weeks. DO NOT use alcohol with narcotic pain medication. DO NOT make important decisions while taking narcotic medication. If you have problems with taking your medication (rash, itching, nausea, etc.) call the office at once. Call your doctor if your incision/area has: Increased Pain/ Swelling, Increased Redness, Foul Smelling Discharge Call your doctor if you observe: Fever of 101 or Higher Remove Dressing in (days):: 4 - Okay to remove dressing on December 05, 2018 Home Medications: Medications to take at Discharge Lisinopril [Zestril] 10 mg PO DAILY 11/30/18 Acetaminophen [Tylenol] 1,000 mg PO Q8 #100 tab 12/01/18 Aspirin [Aspirin, Baby] 81 mg PO BIDCM #60 tab.chew 12/01/18 Famotidine [Pepcid] 20 mg PO DAILY #30 tab 12/01/18 Meloxicam [Mobic] 7.5 mg PO BID #60 tab 12/01/18 Oxycodone [Oxyir] 5 - 10 mg PO Q4H PRN PRN 5 Days #60 tab 12/01/18 Senna/Docusate Sodium [Senokot-S] 2 tab PO BID #20 tab 12/01/18 Following Prescrptions Were Given to Patient: Oxycodone [Oxyir] 5 - 10 mg PO Q4H PRN PRN 5 Days #60 tab PRN Reason: Mod-Severe Pain (4-06/20) Acetaminophen [Tylenol] 1,000 mg PO Q8 #100 tab Famotidine [Pepcid] 20 mg PO DAILY #30 tab Aspirin [Aspirin, Baby] 81 mg PO BIDCM #60 tab.chew Meloxicam [Mobic] 7.5 mg PO BID #60 tab Senna/Docusate Sodium [Senokot-S] 2 tab PO BID #20 tab Primary Care Physician: Emanuel Yo MD [Primary Care Provider] - Please follow up with your Primary Care Physician in: in 3 weeks Please Follow Up With: Hawk Pérez PA-C When: will need to call office @ [phone] to schedule for 12/13/18 or 12/14/18 Please Follow Up With: Physical Therapy When: will need to call office to schedule out-patient physical therapy Additional Instructions: Patient will require 2-week follow-up with [facility]: Patient instructed to contact our office to schedule follow-up on December 13 or December 14 with either Hawk Pérez Pa-C or Dr. Gil Avila. Office number is [phone] Okay to remove dressing on December 05, 2018. After removal of dressing only use soap and water for cleansing. No ointments, salves, Neosporin, lotion on the incision for 6 weeks postoperatively Wear GRANT hose for 2 weeks postoperatively, okay to take off at night but must be on during the day. Tylenol primarily for pain control. Use oxycodone for breakthrough pain. Aspirin 81 mg twice daily for 4 weeks postoperatively for DVT prophylaxis. Continue with famotidine for the 30 days while on aspirin. Currently using meloxicam: Take twice a day with food. Do not take any other anti-inflammatories while on meloxicam (Mobic) Disposition: Home Minutes spent on discharge:: 32 Patient Condition:: Stable Medical Necessity - Tobacco Use Smoking Status: Never smoker Tobacco Use: Non-smoker Meaningful Use Info Meaningful Use Diagnoses (Choose all that apply): None applicable Code Visit Inpatient E&M: 52893 Disch Hosp
--- NOTE | 2018-12-02 17:22 | DS.PCM_ITS ---
Discharge Date and Diagnosis Date of Admission: 11/30/18 Date of Discharge: 12/01/18 - Primary Discharge Diagnosis #1 femoral neck fracture-subacute #2 hypertension #3 osteoarthritis - Secondary Discharge Diagnosis Chronic Problems (Last Reviewed 11/30/18 @ 06:59 by Isreal Browning MD) Hypertension (Chronic) Hyperlipemia (Chronic) Hospital Course and Treatment Operations: - - Right direct anterior total hip replacement Procedures: None Summary of Care Provided: The patient is a 63 year old M who was seen in the emergency room at [facility] after the patient had x-rays of his right hip due to right hip pain from a fall approximately a week prior. Patient's right hip was x- rayed at that time when the patient fell, this x-ray was read out as negative. Repeat x-ray in [place] revealed the presence of a femoral neck fracture, patient was referred to orthopedics and orthopedics advised patient to go to the emergency room for evaluation. Patient's hip x-ray was repeated in the emergency room, it was noted again that the patient had a femoral neck fracture and he was admitted to [place] [id number] and seen in consultation by orthopedic surgery. Patient underwent surgery on 11/30/18 and had a total hip replacement. Patient did well postop and there were no complications. On 12/01/18, patient was seen and examined: On examination he appeared in good health and spirits. Vital signs as documented. Skin warm and dry and without overt rashes. Neck without JVD. Lungs clear. Heart exam notable for regular rhythm, normal sounds and absence of murmurs, rubs or gallops. Abdomen unremarkable and without evidence of organomegaly, masses, or abdominal aortic enlargement. Extremities nonedematous. Neuro: Cranial nerves II through XII are grossly intact, no focal motor deficits were noted, sensation to light touch and pinprick intact. Psych: Patient is alert and oriented x3, he does not appear anxious or depressed On 12/01/18, patient was discharged home in stable condition - Physical Exam Vital Signs Temp Pulse Resp BP Pulse Ox 98.9 F 74 18 138/74 H 98 12/01/18 13:00 12/01/18 13:00 12/01/18 13:00 12/01/18 13:00 12/01/18 13:00 Oxygen Delivery Method Room Air Weight: 116.4 kg Body Mass Index (BMI) 35.8 Intake and Output for Last 24 Hours 11/30/18 12/01/18 12/02/18 23:59 23:59 23:59 Intake Total 3100 / 3100 2921 / 2921 Output Total 650 / 650 1175 / 1175 Balance 2450 / 2450 1746 / 1746 Discharge Diet: No Restrictions Discharge Activity: May Not Drive - while taking narcotic pain medications. May shower in (days): 1 - Okay to shower if dressing is intact to the skin, tu rned dressing away from water Ice area for (Minutes): 20 - Every 1-2 hours while awake Weight Bearing Status: Weight bearing as tolerated Keep extremity elevated above heart level: Operative Extremity Additional Activity Instructions:: Wear elastic stockings for 2 weeks. DO NOT use alcohol with narcotic pain medication. DO NOT make important decisions while taking narcotic medication. If you have problems with taking your medication (rash, itching, nausea, etc.) call the office at once. Call your doctor if your incision/area has: Increased Pain/ Swelling, Increased Redness, Foul Smelling Discharge Call your doctor if you observe: Fever of 101 or Higher Remove Dressing in (days):: 4 - Okay to remove dressing on December 05, 2018 Home Medications: Medications to take at Discharge Lisinopril [Zestril] 10 mg PO DAILY 11/30/18 Acetaminophen [Tylenol] 1,000 mg PO Q8 #100 tab 12/01/18 Aspirin [Aspirin, Baby] 81 mg PO BIDCM #60 tab.chew 12/01/18 Famotidine [Pepcid] 20 mg PO DAILY #30 tab 12/01/18 Meloxicam [Mobic] 7.5 mg PO BID #60 tab 12/01/18 Oxycodone [Oxyir] 5 - 10 mg PO Q4H PRN PRN 5 Days #60 tab 12/01/18 Senna/Docusate Sodium [Senokot-S] 2 tab PO BID #20 tab 12/01/18 Following Prescrptions Were Given to Patient: Oxycodone [Oxyir] 5 - 10 mg PO Q4H PRN PRN 5 Days #60 tab PRN Reason: Mod-Severe Pain (4-10/10) Acetaminophen [Tylenol] 1,000 mg PO Q8 #100 tab Famotidine [Pepcid] 20 mg PO DAILY #30 tab Aspirin [Aspirin, Baby] 81 mg PO BIDCM #60 tab.chew Meloxicam [Mobic] 7.5 mg PO BID #60 tab Senna/Docusate Sodium [Senokot-S] 2 tab PO BID #20 tab Primary Care Physician: Emanuel Yo MD [Primary Care Provider] - Please follow up with your Primary Care Physician in: in 3 weeks Please Follow Up With: Hawk Pérez PA-C When: will need to call office @ [phone] to schedule for 12/13/18 or 12/14/18 Please Follow Up With: Physical Therapy When: will need to call office to schedule out-patient physical therapy Additional Instructions: Patient will require 2-week follow-up with [facility]: Patient instructed to contact our office to schedule follow-up on December 13 or December 14 with either Hawk Pérez Pa-C or Dr. Gil Avila. Office number is [phone] Okay to remove dressing on December 05, 2018. After removal of dressing only use soap and water for cleansing. No ointments, salves, Neosporin, lotion on the incision for 6 weeks postoperatively Wear GRANT hose for 2 weeks postoperatively, okay to take off at night but must be on during the day. Tylenol primarily for pain control. Use oxycodone for breakthrough pain. Aspirin 81 mg twice daily for 4 weeks postoperatively for DVT prophylaxis. Continue with famotidine for the 30 days while on aspirin. Currently using meloxicam: Take twice a day with food. Do not take any other anti-inflammatories while on meloxicam (Mobic) Disposition: Home Minutes spent on discharge:: 32 Patient Condition:: Stable Medical Necessity - Tobacco Use Smoking Status: Never smoker Tobacco Use: Non-smoker Meaningful Use Info Meaningful Use Diagnoses (Choose all that apply): None applicable Code Visit Inpatient E&M: 16732 Disch Hosp
== END 2018-12-01 13:40 | disposition home or self-care (01) | DRG 470 ==
LOC: ED 05:48 → MS3 05:49
PROVIDERS: Specialist; Admitting Provider Hospitalist; Emergency Provider Emergency Medicine; Family Provider Family Medicine; PCP Family Medicine; Visit Provider Internal Medicine
PROC: 0SR904A Replacement of Right Hip Joint with Ceramic on Polyethylene Synthetic Substitute, Uncemented, Open Approach (ICD-10-PCS; CPT 27284; principal; 2018-11-30 07:05)
DX: S72.031A Displaced midcervical fracture of right femur, initial encounter for closed fracture (principal); W01.0XXA Fall on same level from slipping, tripping and stumbling without subsequent striking against object, initial encounter; Y92.039 Unspecified place in apartment as the place of occurrence of the external cause; M16.11 Unilateral primary osteoarthritis, right hip; I10 Essential (primary) hypertension; E78.5 Hyperlipidemia, unspecified; M25.559 Pain in unspecified hip
CPT/HCPCS: 36415; 71045; 73501; 73502; 76000; 80048; 85025; 85610; 93005; 97161; 97165; 97802; 99251; 99285; C1776; J7120; A4216; G0463

== ENCOUNTER → 2019-10-18 07:38 | Outpatient (CLI) | payer MEDICARE, OTHER, SELFPAY ==
[2018-11-30 08:47] VITALS: BMI 35.8
--- NOTE | 2019-10-18 07:42 | US_ITS ---
HISTORY: Abdominal aortic aneurysm screening. 28 images. Real-time stiles scale color Doppler pulse-wave Doppler images were obtained through the abdominal aorta. Findings: The proximal abdominal aorta measures 2 cm. The mid abdominal aorta measures 2.7 cm. The distal abdominal aorta measures 2.3 cm. Triphasic arterial waveforms demonstrated within the abdominal aortic lumen. The right common iliac artery is 1.4 cm. The left common iliac artery diameter is 1.3 cm. There is some abdominal aortic calcific plaque within the distal abdominal aorta that does not cause significant stenosis. US/Aorta IMPRESSION: Some calcific plaque within the distal abdominal aorta. No aneurysm, dissection, or significant stenosis. at 0042 Reported and signed by: Teto Donahue MD Electronically Signed: Teto Donahue MD at 0:41 EST Tel , Service support ,
== END ==
PROVIDERS: Family Provider Family Medicine; PCP Family Medicine; Referring Provider Family Medicine; Visit Provider Family Medicine
DX: Z00.00 Encounter for general adult medical examination without abnormal findings (principal)
CPT/HCPCS: 76775

== ENCOUNTER → 2020-10-20 06:32 | Outpatient (CLI) | payer MEDICARE, SELFPAY ==
[2018-11-30 08:47] VITALS: BMI 35.8
[2020-10-20 07:36] LABS: ALB/GLOB Ratio 0.9 RATIO (0.9-2.4); AST(SGOT) 24 U/L (15-37); Alanine Aminotransfer ALT/SGPT 40 U/L (16-61); Albumin, Serum 3.6 g/dL (3.2-5.0); Alkaline Phosphatase 73 U/L (45-117); Anion Gap 5 (5-15); BUN 18 mg/dL (7-18); BUN/Creat Ratio 16.4 RATIO (10-20); Calcium,Total 9.1 mg/dL (8.5-10.1); Chloride 99 mmol/L (98-107); Cholesterol 240 mg/dL (200); EST Glomerular Filtration Rate 71 mL/min (>60); Est Glom Filt Rate - Afr Amer 86 mL/min (>60); Globulin 3.8 g/dL (2.2-4.2); Glucose 130 mg/dL (74-106); High Density Lipoprotein 69 mg/dL; PSA,Total - Annual Screen 0.46 ng/mL (0.00-4.00); Potassium 4.2 mmol/L (3.5-5.1); Protein, Total 7.4 g/dL (6.4-8.2); Sodium Level 134 mmol/L (136-145); Triglycerides 136 mg/dL; Very Low Density Lipoprotein 27 mg/dL (5-40)
[2020-10-20 08:19] LABS: Hemoglobin A1c 5.6 % (3.8-5.6)
== END ==
PROVIDERS: PCP Family Medicine; Referring Provider Family Medicine; Visit Provider Family Medicine
DX: I10 Essential (primary) hypertension (principal); Z12.5 Encounter for screening for malignant neoplasm of prostate; R73.01 Impaired fasting glucose
CPT/HCPCS: 36415; 80053; 80061; 83036; 84153; G0103

== ENCOUNTER 2021-12-10 22:47 | Inpatient (IN) | payer MEDICARE, SELFPAY ==
[2021-12-10 22:47] VITALS: BP 152/80; PULSE 69; RESP 15; O2SAT 98
[2021-12-10 22:48] VITALS: BP 152/80; PULSE 64; RESP 15; TEMP 36.2; O2SAT 98; BMI 36.3
[2021-12-10 22:51] VITALS: BMI 36.3
[2021-12-10 22:56] LABS: Bedside Glucose 106 mg/dL (74-106)
--- NOTE | 2021-12-10 23:10 | EKG12_ITS ---
Test Reason : NEURO Blood Pressure : / mmHG Vent. Rate : 060 BPM Atrial Rate : 060 BPM P-R Int : 184 ms QRS Dur : 098 ms QT Int : 418 ms P-R-T Axes : 032 -06 038 degrees QTc Int : 418 ms Normal sinus rhythm Normal ECG Confirmed by RAJAT ANTONIO, GREER ([id number]), multimedia editor EDMUNDO REBOLLAR ([id number]) on 12/14/2021 11:44:20 AM Referred By: Lyssa Vick Confirmed By:GREER EARL MD
--- NOTE | 2021-12-10 23:10 | CT_ITS ---
EXAM: CT HEAD WITHOUT INTRAVENOUS CONTRAST CLINICAL INDICATION: stroke like symptoms TECHNIQUE: Multiple axial images were obtained of the head without intravenous contrast. This CT exam was performed using one or more of the following dose reduction techniques: automated exposure control, adjustment of the mA and/or kV according to patient size, and/or use of iterative reconstruction technique. This report was created using bead Button report generation technology. RADIATION DOSAGE (If Required by State): CTDIvol = (44.99) mGy, DLP = (812.98) mGycm. COMPARISON: None. FINDINGS: BRAIN AND EXTRA-AXIAL SPACES: Unremarkable. No intra- or extra-axial hemorrhage. No evidence of acute infarct. No intracranial mass or mass effect. There is preservation of the stiles/white matter interface. Posterior fossa structures are unremarkable. Ventricles are appropriate for age. No hydrocephalus. Basal cisterns are patent. BONES/JOINTS: Unremarkable. No discrete lytic or blastic abnormalities. SINUSES: Unremarkable as visualized. Clear. MASTOID AIR CELLS: Unremarkable. Clear. ORBITS: Visualized globes, extraocular muscles, optic nerves and retrobulbar fat appear unremarkable. CT/Brain/Head without Contrast IMPRESSION: Negative head/brain CT without intravenous contrast. Electronically Signed: Willy Hargrove MD at 23:46 EDT ,
--- NOTE | 2021-12-10 23:10 | CT_ITS ---
EXAM: CT ANGIOGRAPHY HEAD AND NECK WITH INTRAVENOUS CONTRAST CLINICAL INDICATION: stroke like symptoms TECHNIQUE: [facility] [place] [facility]/head and neck CT angiography protocol performed with intravenous contrast. This CT exam was performed using one or more of the following dose reduction techniques: automated exposure control, adjustment of the mA and/or kV according to patient size, and/or use of iterative reconstruction technique. This report was created using Voices report generation technology. MIP reconstructed images were created and reviewed. RADIATION DOSAGE (If Required by State): CTDIvol = (26.65) mGy, DLP = (808.89) mGycm. CONTRAST: IV 100mL [id number] COMPARISON: None. FINDINGS: HEAD: RIGHT ANTERIOR CEREBRAL ARTERY: Unremarkable. No significant stenosis at the visualized segments. Anterior communicating artery is present. No aneurysm. RIGHT MIDDLE CEREBRAL ARTERY: Unremarkable. No significant stenosis at the visualized segments. No aneurysm. RIGHT POSTERIOR CEREBRAL ARTERY: Unremarkable. No occlusion or significant stenosis. No aneurysm. RIGHT INTRACRANIAL INTERNAL CAROTID ARTERY: Unremarkable. No significant stenosis. No dissection or occlusion. RIGHT INTRACRANIAL VERTEBRAL ARTERY: Dominant right vertebral artery. No significant stenosis. No dissection or occlusion. LEFT ANTERIOR CEREBRAL ARTERY: Unremarkable. No significant stenosis at the visualized segments. No aneurysm. LEFT MIDDLE CEREBRAL ARTERY: Unremarkable. No significant stenosis at the visualized segments. No aneurysm. LEFT POSTERIOR CEREBRAL ARTERY: Unremarkable. No occlusion or significant stenosis. No aneurysm. LEFT INTRACRANIAL INTERNAL CAROTID ARTERY: Unremarkable. No significant stenosis. No dissection or occlusion. LEFT INTRACRANIAL VERTEBRAL ARTERY: Unremarkable. No significant stenosis. No dissection or occlusion. BASILAR ARTERY: Unremarkable. No significant stenosis. No aneurysm. GREAT VESSELS OF AORTIC ARCH: Unremarkable. Normal anatomy, patent. OTHER VASCULATURE: See above. NECK: RIGHT COMMON CAROTID ARTERY: Unremarkable. No significant stenosis. No dissection or occlusion. RIGHT EXTRACRANIAL INTERNAL CAROTID ARTERY: Unremarkable. No significant stenosis. No dissection or occlusion. RIGHT EXTERNAL CAROTID ARTERY: Unremarkable. No occlusion. RIGHT EXTRACRANIAL VERTEBRAL ARTERY: See above. LEFT COMMON CAROTID ARTERY: Unremarkable. No significant stenosis. No dissection or occlusion. LEFT EXTRACRANIAL INTERNAL CAROTID ARTERY: Mild atherosclerotic changes left carotid bulb without hemodynamically significant stenosis. No dissection or occlusion. LEFT EXTERNAL CAROTID ARTERY: Unremarkable. No occlusion. LEFT EXTRACRANIAL VERTEBRAL ARTERY: Unremarkable. No significant stenosis. No dissection or occlusion. LUNG APICES: Unremarkable as visualized. HEAD and NECK: BONES/JOINTS: Unremarkable. No discrete lytic or blastic abnormalities. SOFT TISSUES: Unremarkable. CAROTID STENOSIS REFERENCE USING NASCET CRITERIA: % ICA stenosis = (1 - narrowest ICA diameter/diameter of distal cervical ICA) x 100. Mild - <50% stenosis. Moderate - 50-69% stenosis. Severe - 70-94% stenosis. Near occlusion - 95-99% stenosis. Occluded - 100% stenosis. CT/CTA Head AND Neck W/ Contrast IMPRESSION: No acute findings in the arteries of the head and neck. Electronically Signed: Willy Hargrove MD at 0:21 EDT ,
[2021-12-10 23:21] LABS: Absolute Lymphocyte Count 2.98 X10^3/uL (0.83-4.51); Absolute Neutrophil Count 3.7 X10^3/uL (2.0-7.7); Basophil# 0.07 X10^3/uL; Basophil% 0.9 % (0-1); Eosinophil# 0.18 X10^3/uL; Eosinophils% 2.2 % (0-5); Hematocrit 47.4 % (40-54); Hemoglobin 16.8 g/dL (13.0-16.5); Lymphocyte # 2.98 X10^3/ul (0.83-4.51); Mean Corp Hgb Conc 35.4 g/dL (32-36); Mean Corpuscular Hgb 36.7 pg (27.0-32.0); Mean Corpuscular Volume 103.5 fL (80-94); Mean Platelet Vol. 10.4 fl (6.2-12.0); Monocyte% 13.7 % (0-10); NRBC Flagged by Analyzer 0 % (0-5); Neutrophil # 3.69 X10^3/uL (2.7-7.7); Neutrophil % 45.8 % (47-70); Platelet Count 231 K/mm3 (150-450); RBC Distribution Width CV 12.4 % (11.6-14.6); RBC Distribution Width SD 47.8 fl (35.1-43.9); Red Blood Count 4.58 M/mm3 (4.6-6.2); White Blood Count 8.1 K/mm3 (4.4-11.0)
--- NOTE | 2021-12-10 23:28 | EX.ED.DYSGE1 ---
HPI History of Present Illness Chief Complaint: Neuro S/Sx Narrative Narrative: Patient is a 66-year-old male with past medical history of hypertension. He states 2 days ago he sneezed and after that noticed he was having some numbness and tingling to his right side along with some right-sided weakness and slurred speech. He states that he is given it 2 days to improve spontaneously but it has not done so and secondary to this comes to the hospital for evaluation. Patient does have a significant family history of stroke in his mother and that is his concern at this time [facility] Medical History HTN (hypertension) Hyperlipemia Home Medications lisinopril 10 mg PO DAILY 11/30/18 [History Last Taken 11/29/18 08:00 10 mg] acetaminophen 1,000 mg PO Q8 #100 tab 12/01/18 [Rx Last Taken Unknown] aspirin 81 mg PO BIDCM #60 tab.chew 12/01/18 [Rx Last Taken Unknown] famotidine 20 mg PO DAILY #30 tab 12/01/18 [Rx Last Taken Unknown] meloxicam 7.5 mg PO BID #60 tab 12/01/18 [Rx Last Taken Unknown] sennosides-docusate sodium 2 tab PO BID #20 tab 12/01/18 [Rx Last Taken Unknown] Allergy/AdvReac Type Severity Reaction Status Date / Time No Known Allergies Allergy Verified 12/10/21 22:48 Family History Father Blood clot in vein Mother Heart disease Brother Heart disease Surgical History history of broken tail bone History of left knee replacement Social History Smoking Status: Never smoker alcohol intake: current alcohol intake frequency: a few times a month substance use type: does not use what type of physical activity do you participate in: other details: [employer], physical job ROS ROS ED Constitutional Constitutional ED: Denies chills or fever(s) Eyes Eyes: Denies change in vision ENT ENT ED: Denies sore throat Cardiovascular Cardiovascular: Denies chest pain Respiratory/Chest Respiratory/Chest: Denies cough or dyspnea Gastrointestinal Gastrointestinal: Denies abdominal pain, diarrhea, nausea or vomiting Genitourinary Genitourinary ED: Denies dysuria Musculoskeletal Musculoskeletal: Denies back pain, myalgias or neck pain Integumentary Denies rash Neurologic Neurologic: Reports paresthesias and weakness; Denies headache(s) Hematologic/Lymphatic Hematologic/Lymphatic: Denies easy bleeding or easy bruising EXAM Physical Exam Const Vital Signs: 12/10/21 22:47 12/10/21 22:48 12/11/21 00:48 Temperature 97.2 F L Temperature Source Temporal Pulse Rate 69 64 64 Respiratory Rate 15 15 17 Blood Pressure 152/80 H 152/80 H 132/74 H Blood Pressure Mean 104 104 93 Pulse Ox 98 98 98 Oxygen Delivery Method Room Air Room Air Room Air Positive well nourished, well developed and obese General Appearance ED: well developed Nutritional Appearance: obese HEENT Reports moist mucous membranes Eyes PERRL and EOMs intact bilaterally Neck supple Neck Narrative: No carotid bruit noted Chest Wall palpation of chest normal Resp normal respiratory effort and clear to auscultation bilaterally Cardio regular rate and regular rhythm GI normal to inspection, nondistended, normoactive bowel sounds, non-tender, non-distended and no masses GI Narrative: No voluntary guarding or rigidity no pulsatile mass Auscultation: normoactive bowel sounds Palpation: soft Extremity normal to inspection Neuro oriented x3 Neuro Narrative: Patient has an NIH stroke scale score of 3. He receives one-point for mild slurred speech/dysarthria. He receives 1 point for drift to his right leg. He also receives 1 point for mild paresthesias of his left face and arm. Otherwise there is no dysmetria or truncal ataxia no pronator drift or facial droop noted. Sensorium / Orientation: alert Psych mental status grossly normal Skin no rashes or lesions noted MDM MDM MDM Narrative Medical decision making narrative: Patient presented to the ER 2 days after his onset of symptoms and therefore fell outside any type of stroke window. This is why a stroke alert was not activated. The patient had an NIH stroke scale score of 3 and as she reported symptoms came on after a sneezing episode there was a concern he could have ruptured a small aneurysm and therefore elected to perform a CT scan without contrast to start. There was no acute bleed so a CTA was added because of his stroke symptoms. CTA revealed no large vessel occlusion or obvious stenosis. Blood work also revealed no clinically significant findings. On reevaluation his symptoms remained stable with an NIH score of 3. At this time based on his history we have to assume he is an acute or subacute phase of a stroke and with his age weight and history of hypertension and hyperlipidemia he does have multiple risk factors for this. Patient will be started on aspirin and will otherwise be admitted to the hospital to complete the stroke work-up. Lab Data Attestation: I reviewed the patient's lab results. Labs: Laboratory Results - last 24 hr 12/10/21 12/10/21 12/10/21 22:51 23:14 23:14 WBC 8.1 RBC 4.58 L Hgb 16.8 H Hct 47.4 MCV 103.5 H MCH 36.7 H MCHC 35.4 RDW Std Deviation 47.8 H RDW Coeff of Mark 12.4 Plt Count 231 MPV 10.4 Immature Gran % (Auto) 0.400 Neut % (Auto) 45.8 L Lymph % (Auto) 37.0 Hawkins % (Auto) 13.7 H Eos % (Auto) 2.2 Baso % (Auto) 0.9 Absolute Neuts (auto) 3.7 Absolute Lymphs (auto) 2.98 Nucleated RBC % 0 PT 13.4 INR 1.1 APTT 29.3 Sodium Potassium Chloride Carbon Dioxide Anion Gap BUN Creatinine Estim Creat Clear Calc Est GFR (MDRD) Af Amer Est GFR (MDRD) Non-Af BUN/Creatinine Ratio Glucose Calcium Magnesium Troponin I High Sens POC Glucose 106 12/10/21 23:14 WBC RBC Hgb Hct MCV MCH MCHC RDW Std Deviation RDW Coeff of Mark Plt Count MPV Immature Gran % (Auto) Neut % (Auto) Lymph % (Auto) Hawkins % (Auto) Eos % (Auto) Baso % (Auto) Absolute Neuts (auto) Absolute Lymphs (auto) Nucleated RBC % PT INR APTT Sodium 137 Potassium 4.2 Chloride 104 Carbon Dioxide 27.0 Anion Gap 6 BUN 13 Creatinine 1.08 Estim Creat Clear Calc 69.72 Est GFR (MDRD) Af Amer 87 Est GFR (MDRD) Non-Af 72 BUN/Creatinine Ratio 12.0 Glucose 106 Calcium 8.9 Magnesium 2.2 Troponin I High Sens 4 POC Glucose Radiography Diagnostic Testing: Clinical Impression(s) from Imaging Studies Brain CT 12/10/21 23:10 IMPRESSION: Negative head/brain CT without intravenous contrast. Electronically Signed: Willy Hargrove MD at 23:46 EDT , Head/Neck CTA 12/10/21 23:10 IMPRESSION: No acute findings in the arteries of the head and neck. Electronically Signed: Willy Hargrove MD at 0:21 EDT Reading Location ID and State: [facility] / [place] Tel , Service support , Chest X-Ray 12/10/21 23:35 IMPRESSION: No radiographic evidence of acute cardiopulmonary disease. Electronically Signed: Willy Hargrove MD at 23:45 EDT Reading Location ID and State: [facility] / [facility] Tel , Service support , 1 view chest x-ray as interpreted by the emergency physician displays no pneumothorax infiltrate or pleural effusion Critical Care Time Critical Care Time: Yes Critical care time (excluding procedures): - (31 minutes) Discharge Plan Dx/Rx/DC Orders Clinical Impression: Acute CVA (cerebrovascular accident), Hypertension Disposition Disposition: Acute Care Hospital [facility] Discharge Date/Time: 12/11/21 03:05
[2021-12-10 23:30] LABS: International Normalized Ratio 1.1; Prothrombin Time (Protime)PT. 13.4 SECONDS (11.7-14.9)
[2021-12-10 23:31] LABS: Partial Thromboplast Time 29.3 Seconds (24.1-36.2)
--- NOTE | 2021-12-10 23:35 | RAD_ITS ---
EXAM: XR CHEST, 1 VIEW CLINICAL INDICATION: weakness TECHNIQUE: Frontal view of the chest. This report was created using [employer] report generation technology. COMPARISON: 11/30/2018. FINDINGS: LUNGS AND PLEURAL SPACES: Unremarkable. No consolidation or edema. No pneumothorax. No effusion. HEART: Unremarkable. Cardiac silhouette not enlarged. MEDIASTINUM: Central airways and mediastinal contour are unremarkable. BONES/JOINTS: Unremarkable. SOFT TISSUES: Unremarkable. RAD/Chest 1 View (Portable) IMPRESSION: No radiographic evidence of acute cardiopulmonary disease. Electronically Signed: Willy Hargrove MD at 23:45 EDT ,
[2021-12-10 23:40] LABS: Anion Gap 6 (5-15); BUN 13 mg/dL (7-18); Calcium,Total 8.9 mg/dL (8.5-10.1); Chloride 104 mmol/L (98-107); Creatinine, Serum 1.08 mg/dL (0.70-1.30); EST Glomerular Filtration Rate 72 mL/min (>60); Est Glom Filt Rate - Afr Amer 87 mL/min (>60); Estimated Creatinine Clearance 69.72 ml/min; Glucose 106 mg/dL (74-106); Magnesium 2.2 mg/dL (1.6-2.6); Potassium 4.2 mmol/L (3.5-5.1); Sodium Level 137 mmol/L (136-145); Troponin-I HS 4 pg/mL (3.0-78.0)
[2021-12-11] VITALS (13 sets, daily range): BP systolic 132–166; BP diastolic 72–97; PULSE 51–78; RESP 16–18; TEMP 36.1–37.3; O2SAT 93–99; BMI 35.0
--- NOTE | 2021-12-11 01:33 | HP.PCM.HOS_ITS ---
HPI - General General Date of Admission: 12/11/21 HPI Narrative VELIA WANG, is a 66 M with a significant history of chronic back pain who used to see a chiropractor; obstructive sleep apnea on home CPAP; hypertension on lisinopril; and hyperlipidemia who was previously on pravastatin presenting to emergency department with strokelike symptoms. Four days before presentation patient went to see his PCP for routine examination. He reported that his examination with his PCP was unremarkable. Two days before presentation patient sneezed and then developed excruciating back pain followed by numbness of his right upper extremity and his right lower extremity. Associated with symptoms is slurry speech. Further patient has noticed that he has been dragging his right leg and he is unable to stand up easily because of weakness in his right feet. His presenting symptoms has been persistent. Because patient's mother has had multiple strokes patient's family encouraged him to come to the emergency department At the emergency department patient was scored at 3 on NIH for a sensation changes in his face; dysarthria and drift in his right leg. [facility] Medical History HTN (hypertension) Hyperlipemia Home Medications lisinopril 10 mg PO DAILY 11/30/18 [History Last Taken 11/29/18 08:00 10 mg] acetaminophen 1,000 mg PO Q8 #100 tab 12/01/18 [Rx Last Taken Unknown] aspirin 81 mg PO BIDCM #60 tab.chew 12/01/18 [Rx Last Taken Unknown] famotidine 20 mg PO DAILY #30 tab 12/01/18 [Rx Last Taken Unknown] meloxicam 7.5 mg PO BID #60 tab 12/01/18 [Rx Last Taken Unknown] sennosides-docusate sodium 2 tab PO BID #20 tab 12/01/18 [Rx Last Taken Unknown] Allergy/AdvReac Type Severity Reaction Status Date / Time No Known Allergies Allergy Verified 12/10/21 22:48 Family History Father Blood clot in vein Mother Heart disease Brother Heart disease Surgical History history of broken tail bone History of left knee replacement Social History household members: spouse number of children: 5 service: No current occupational status: employed current occupation: self employeed [employer] Smoking Status: Never smoker alcohol intake: current alcohol intake frequency: a few times a month details: twice a week substance use type: does not use what type of physical activity do you participate in: other details: [employer], physical job ROS ROS Narrative Constitutional: Denies fever, chills, fatigue, anorexia and change in weight Eyes: Denies blurry vision, change in eye color, change in vision, discharge from eye(s), double vision, erythema, eye pain, loss of vision or other HEENT: Denies abnormal hearing, dysphagia, ear pain, epistaxis, headache(s), hearing loss, nasal congestion, nasal discharge, post nasal drip, sinus pressure, sore throat or other Cardiovascular: Denies chest pain or palpitations. Denies dyspnea on exertion, orthopnea and paroxysmal nocturnal dyspnea Respiratory/Chest: Denies cough, excessive phlegm production, shortness of breat h with exertion and wheezing Gastrointestinal: Denies abdominal pain, coffee ground emesis, constipation, diarrhea, dyspepsia, hematemesis, hematochezia, loose stools, melena, nausea, vomiting or other Genitourinary: Denies burning urination, difficulty urinating, dysuria, hematuria, nocturia, urinary frequency, urinary hesitancy, urinary incontinence, urinary urgency or other Musculoskeletal: Denies arthralgias, joint stiffness, joint swelling, myalgias, neck pain or other Neurologic: Reports speech changes, numbness, weakness of right lower extremity. Denies confusion, dizziness, headache(s), seizure-like activity, syncope, tremor(s) or other Psychiatric: Denies anxiety, depression, homicidal ideation, suicidal ideation or other Endocrinology: Denies change in body appearance, cold intolerance, excessive sweating, heat intolerance, polydipsia, polyuria or other Hematologic/Lymphatic: Denies anemia, easy bleeding, easy bruising, lymphadenopathy or other Integumentary: Denies rashes Allergic/Immunologic: Denies rhinitis, hives, eczema, or other Vital Signs Vital Signs Vital Signs: 12/10/21 22:47 12/10/21 22:48 12/11/21 00:48 Temperature 97.2 F L Temperature Source Temporal Pulse Rate 69 64 64 Respiratory Rate 15 15 17 Blood Pressure 152/80 H 152/80 H 132/74 H Blood Pressure Mean 104 104 93 Pulse Ox 98 98 98 Oxygen Delivery Method Room Air Room Air Room Air Weight Weight: 118.2 kg Body Mass Index (BMI) 36.3 Physical Exam Narrative Physical exam: General: Well-nourished, well-developed. Head: Normocephalic, atraumatic, no tenderness Eyes: Vision is grossly intact. EOMI ENT, no trauma, moist mucous membranes, no rhinorrhea Neck: Nontender, full range of motion, no spinal tenderness, deformities, step- off CVS: Regular rate and rhythm. S1-S2 present. No murmur, gallop or rub. Respiratory : clear to auscultation bilaterally, chest wall nontender, no wheezing Abdomen: Soft, nontender, nondistended, normal bowel sounds, no masses : Deferred Back: Nontender, no CVA tenderness, no midline spinal tenderness, deformities, step-offs Extremities: Nontender full range of motion, no trauma Skin: Normal color, no trauma, abrasions Neuro: Alert, oriented, cranial nerves II through XII grossly intact. Sensation changes of the right face. Strength in right upper and right lower extremity 4 out of 5. Strength in left upper and left lower extremity 5 out of 5. No dysmetria with [id number] test or xfrg-bm-sois test. Deep tendon reflexes not hyperreflexia throughout. With aphasia and dysarthria Psychiatry: Normal mood. Normal affect. Not depressed. Not anxious. Results Lab / Micro Data Result Diagrams: 12/10/21 23:14 12/10/21 23:14 Labs: Laboratory Results - last 24 hr 12/10/21 22:51: POC Glucose 106 12/10/21 23:14: WBC 8.1, RBC 4.58 L, Hgb 16.8 H, Hct 47.4, MCV 103.5 H, MCH 36.7 H, MCHC 35.4, RDW Std Deviation 47.8 H, RDW Coeff of Mark 12.4, Plt Count 231, MPV 10.4, Immature Gran % (Auto) 0.400, Neut % (Auto) 45.8 L, Lymph % (Auto) 37.0, Ware % (Auto) 13.7 H, Eos % (Auto) 2.2, Baso % (Auto) 0.9, Absolute Neuts (auto) 3.7, Absolute Lymphs (auto) 2.98, Nucleated RBC % 0 12/10/21 23:14: PT 13.4, INR 1.1, APTT 29.3 12/10/21 23:14: Sodium 137, Potassium 4.2, Chloride 104, Carbon Dioxide 27.0, Anion Gap 6, BUN 13, Creatinine 1.08, Estim Creat Clear Calc 69.72, Est GFR (MDRD) Af Amer 87, Est GFR (MDRD) Non-Af 72, BUN/Creatinine Ratio 12.0, Glucose 106, Calcium 8.9, Magnesium 2.2, Troponin I High Sens [address] 12/10/21 23:10 IMPRESSION: Negative head/brain CT without intravenous contrast. Electronically Signed: Willy Hargrove MD at 23:46 EDT Reading Location ID and State: [facility] Tel , Service support , Head/Neck CTA 12/10/21 23:10 IMPRESSION: No acute findings in the arteries of the head and neck. Electronically Signed: Willy Hargrove MD at 0:21 EDT Reading Location ID and State: [facility] [facility] Tel , Service support , Chest X-Ray 12/10/21 23:35 IMPRESSION: No radiographic evidence of acute cardiopulmonary disease. Electronically Signed: Willy Hargrove MD at 23:45 EDT , Assessment & Plan Assessment/Plan (1) Stroke-like symptoms: PLAN: Strokelike symptoms Serial NINDS NIH Scale ordered Head and neck CTA and brain CT was visualized and independently interpreted and I agree with radiologist interpretation of no acute process. Chest x-ray showed no acute cardiopulmonary process. High-sensitivity troponin is unremarkable. Blood glucose is normal. Lipid profile and A1c ordered. Physical therapy, occupational therapy and speech therapy to work with patient. N.p.o. until bedside swallow eval. Daily aspirin and Plavix ordered High intensity statin ordered. Check CMP. Patient is outside window of permissive hypertension. MRI of brain. Carotid duplex ordered. Telemetric monitoring. Echocardiogram ordered. Hypertension Blood pressure is not within goal Continue home lisinopril. Trend blood pressure and adjust blood pressure medications. Erythrocytosis Hemoglobin presentation was 16.8. Noted to have chronic macrocytosis. BUN and creatinine is normal. Trend CBC. DVT prophylaxis Subcutaneous Lovenox ordered. Charges/Coding Visit Charges OBSV E&M: 47676 Initial observation care L3
--- NOTE | 2021-12-11 02:44 | NURSING ---
Unable to do admit or scan the asa d/t hospitalist in chart.
[2021-12-11] MEDS: Aspirin 325 MG Tablet PO (03:03)
--- NOTE | 2021-12-11 03:18 | ECHOD_ITS ---
Reason For Study: TIA/CVA Procedure This was a 2D Doppler, Color Flow transthoracic echocardiogram. The study was technically difficult. Exam performed portable in patient room. Left Ventricle Normal LV size. Apical false tendon noted. Left ventricular systolic function is normal. The estimated ejection fraction is 60 %. Diastolic function is indeterminate. No regional wall motion abnormalities noted. Right Ventricle Normal RV size. Normal systolic function. Atria Normal left atrium. Normal right atrium. No doppler evidence for ASD. Bubble contrast study negative for right to left interatrial shunt. Mitral Valve There is no mitral annular calcification. Normal mitral valve. Trivial mitral valve insufficiency. Tricuspid Valve Normal tricuspid valve. Trivial tricuspid valve insufficiency. Unable to estimate RV systolic pressure/pulmonary artery pressure due to technically difficult study. Aortic Valve Trisinus/trileaflet aortic valve. Mild focal aortic valve thickening. Pulmonic Valve The pulmonic valve is not well visualized. Great Vessels Normal sized aortic root. Pericardium/Pleural No pericardial effusion. Medication Performed a rapid injection of agitated mix of 9 cc saline and 1cc air to assess for atrial septal defect. MMode/2D Measurements & Calculations LVIDd: 5.7 cm IVSd: 1.2 cm Ao root diam: 3.7 cm LVIDs: 4.0 cm LVPWd: 0.99 cm RVDd: 3.9 cm FS: 29.4 % LAV(MOD-bp): 56.7 ml LVAd ap4: 31.2 cm2 SV(MOD-sp4): 50.1 ml LAV(MOD-bp) Indexed: 24.4 ml/m2 LVLd ap4: 9.4 cm LAV(MOD-sp2): 73.4 ml EDV(MOD-sp4): 87.3 ml LAV(MOD-sp4): 40.1 ml EDV(sp4-el): 88.0 ml LVAs ap4: 18.0 cm2 LVLs ap4: 7.9 cm ESV(MOD-sp4): 37.2 ml ESV(sp4-el): 34.7 ml EF(MOD-sp4): 57.4 % EF(sp4-el): 60.5 % SV(sp4-el): 53.2 ml LA A4 area: 17.1 cm2 LA dimension(2D): 4.5 cm RA A4 area: 14.7 cm2 Doppler Measurements & Calculations MV E max hakan: 46.3 cm/sec Lat Peak E' Hakan: 6.7 cm/sec Med Peak E' Hakan: 5.4 cm/sec MV A max hakan: 79.9 cm/sec E/E' lat: 6.9 E/E' med: 8.5 MV E/A: 0.58 Ao V2 max: 141.8 cm/sec LV V1 max: 103.9 cm/sec PA V2 max: 121.3 cm/sec Ao max P.0 mmHg LV V1 max P.3 mmHg Ao V2 mean: 102.5 cm/sec Ao mean P.6 mmHg Ao V2 VTI: 30.3 cm ECHO/Echo Complete Interpretation Summary The study was technically difficult. Left ventricular systolic function is normal. The estimated ejection fraction is 60 %. Apical false tendon noted. Trivial mitral valve insufficiency. Trivial tricuspid valve insufficiency. Mild focal aortic valve thickening. Unable to estimate RV systolic pressure/pulmonary artery pressure due to techni emy difficult study. Diastolic function is indeterminate. Bubble contrast study negative for right to left interatrial shunt. Ordering Physician: Isreal Browning Referring Physician: Zurdo Yo Performed By: Mónica Vaughn, IBIS, RVT
--- NOTE | 2021-12-11 03:18 | MRI_ITS ---
We are attempting to reach an attending provider to discuss findings. An addendum with communication details will be sent when the communication is complete. STUDY: MRI BRAIN WITHOUT CONTRAST REASON FOR EXAM: Male, 66 years old. CVA,slurred speech, rt sided weakness, rt leg drift TECHNIQUE: Standardized multiplanar fat and water weighted pulse sequences were obtained. COMPARISON: Head CT dated DECEMBER 10, 2021. FINDINGS: A small to moderate size acute infarct is present on the left side of the merle in the anterior and central regions. No additional acute infarcts are present. There is mild cerebral atrophy with widening of the extra-axial spaces and ventricular dilatation. There are a limited number of small white matter hyperintensities, distributed throughout the deep white matter tracts of the cerebral hemispheres, consistent with mild chronic white matter ischemic changes. Normal T2* images of the brain without demonstrated susceptibility artifact. There is no demonstrated hemosiderin stain. A small old lacunar infarct is present in the head of the left caudate nucleus. Normal thalami. There is no extra-axial fluid accumulation. Normal flow voids within the major intracranial circulation suggesting patency by spin echo criteria. Normal sella turcica, pituitary gland, infundibular stalk, optic chiasm and hypothalamus. Normal tectal plate and pineal gland. Normal midbrain and medulla. Normal cerebellum. Normal basal cisterns. Normal bilateral temporal bones. Normal bilateral internal auditory canals. No demonstrated orbital abnormality, within the constraints of a routine brain study. Normal visualized paranasal sinuses. Normal calvarium and skull base. Normal visualized soft tissue structures. Normal visualized upper cervical spine. IMPRESSION: Acute small to moderate size left pontine infarct 1. A small to moderate size acute infarct is present on the left side of the merle in the anterior and central regions. No additional acute infarcts are present. 2. Involutional and additional chronic ischemic changes of the brain, as described above. Electronically Signed: Vinny James MD at 10:43 EDT , MRI/Brain without Contrast
[2021-12-11 07:06] LABS: Absolute Lymphocyte Count 1.94 X10^3/uL (0.83-4.51); Absolute Neutrophil Count 2.7 X10^3/uL (2.0-7.7); Basophil# 0.07 X10^3/uL; Basophil% 1.2 % (0-1); Eosinophils% 3.5 % (0-5); Hematocrit 45.2 % (40-54); Hemoglobin 15.9 g/dL (13.0-16.5); Lymphocyte # 1.94 X10^3/ul (0.83-4.51); Lymphocyte % 34.2 % (19-41); Mean Corp Hgb Conc 35.2 g/dL (32-36); Mean Corpuscular Hgb 36.6 pg (27.0-32.0); Mean Corpuscular Volume 104.1 fL (80-94); Mean Platelet Vol. 10.2 fl (6.2-12.0); Monocyte# 0.75 X10^3/uL; Monocyte% 13.2 % (0-10); NRBC Flagged by Analyzer 0 % (0-5); Neutrophil # 2.71 X10^3/uL (2.7-7.7); Neutrophil % 47.7 % (47-70); Platelet Count 214 K/mm3 (150-450); RBC Distribution Width CV 12.5 % (11.6-14.6); RBC Distribution Width SD 48.4 fl (35.1-43.9); Red Blood Count 4.34 M/mm3 (4.6-6.2); White Blood Count 5.7 K/mm3 (4.4-11.0)
[2021-12-11 07:41] LABS: ALB/GLOB Ratio 0.9 RATIO (0.9-2.4); AST(SGOT) 28 U/L (15-37); Alanine Aminotransfer ALT/SGPT 45 U/L (16-61); Albumin, Serum 3.3 g/dL (3.2-5.0); Alkaline Phosphatase 70 U/L (45-117); Anion Gap 5 (5-15); BUN 13 mg/dL (7-18); BUN/Creat Ratio 12.6 RATIO (10-20); Calcium,Total 8.7 mg/dL (8.5-10.1); Chloride 104 mmol/L (98-107); Cholesterol 219 mg/dL (200); Creatinine, Serum 1.03 mg/dL (0.70-1.30); EST Glomerular Filtration Rate 76 mL/min (>60); Est Glom Filt Rate - Afr Amer 92 mL/min (>60); Estimated Creatinine Clearance 73.11 ml/min; Globulin 3.7 g/dL (2.2-4.2); Glucose 117 mg/dL (74-106); High Density Lipoprotein 56 mg/dL; Potassium 4.6 mmol/L (3.5-5.1); Sodium Level 136 mmol/L (136-145); Triglycerides 123 mg/dL; Very Low Density Lipoprotein 25 mg/dL (5-40)
[2021-12-11] MEDS: Clopidogrel Bisulfate 75 MG Tablet PO (08:02)
[2021-12-11] MEDS: Aspirin 81 MG TAB.CHEW PO (08:02)
[2021-12-11] MEDS: Enoxaparin 40 MG/0.4 ML Syringe SC (08:02)
[2021-12-11 09:10] LABS: Hemoglobin A1c 5.9 % (3.8-5.6)
--- NOTE | 2021-12-11 10:47 | TELEMED_ITS ---
[facility] Telemed has confirmed receipt of a request for visit. This document confirms receipt of the order initiating the consult. To find the results of the consultation, please view the patient's reports for the scanned Telemed Consult.
--- NOTE | 2021-12-11 11:01 | NURSING ---
NIHSS and Vitals late due to patient being at MRI
--- NOTE | 2021-12-11 12:15 | CASEMGMT ---
KADE SHELL Assessment: Face to Face with pt for initial transition planning/care coordination assessment. RN SULEMAN introduced self and role at [facility], pt voices understanding and consents to assessment. Pt is A/O x4 and answers all questions appropriately at this time. Pt sitting up in bed with at bedside in no distress. Care providers, pharmacy, and demographics verified/updated. Admitting Dx: CVA PCP:[facility] Specialists: Pt denies. Preferred Pharmacy: [facility] Insurance: [facility] Prescription Benefit: yes LW/HPOA: Pt denies having a LW/DPOA and denies need for info regarding AD. LNOK: Shayla Martinez, Living Arrangements: Pt lives with in a 1.5 story house with 2 steps to enter with a rail. Pt reports he is I in ADL's and denies concerns at home. Transportation: Pt drives self and denies concerns with transportation. DME/HHC/SNF: Pt has a CPAP at home, no other DME. Pt denies hx of HHC or SNF stays. Pt states no concerns with going home at time of dc. ST just saw pt per his report. PT/OT yet to eval. Pt states he does not feel he needs any therapy after hospitalization. Pt states he worked for 2 days after the stroke. RN CM to follow. Pt reports he will be on coumadin at home. Pt states no further concerns/needs. CM to follow. Advised pt to ask CM if any further question/concerns/needs arise, voices understanding. Pt Goal: Home Plan: Home, follow therapy
--- NOTE | 2021-12-11 12:15 | CM.ED ---
LEXY Note Referral Source: RN CM Referral Reason: + Stroke SW was advised by RN SULEMAN that patient was positive for stroke. SW will follow up with patient with the PHQ9. Lily WEN
--- NOTE | 2021-12-11 14:36 | CASEMGMT ---
SW Note Referral Source: RN SULEMAN Referral Reason: Positive Stroke SW met with patient. Present in the room was patient's and daughter. SW reviewed the PHQ9. Patient was asked for the response within the last 2 weeks and specifically when patient was asked about trouble sleeping he said more than 1/2 days and then stated he couldn't sleep Monday night when he had the stroke. Patient's PHQ9 score is a 12. SW advised that score is consistent with moderate depression. SW advised that if patient has any issues with depression at home he can speak to his PCP about medication. said that patient is at his baseline and just gets frustrated as he can't do things he normally did. SW provided emotional support. SW also provided information on stroke support group and PHP/IOP and counseling agencies as resources. SW noted that patient was smiling throughout the assessment and when this play writer came in and introduced self and reason for consult related to depression patient made joke. SW updated KADE Rand. Plan: Resources provided Lily ROSARIO
--- NOTE | 2021-12-11 15:09 | PN.HOSP_ITS ---
Subjective Subjective Follow-up on acute stroke: Patient was seen and examined. He still has dysarthria and feels is more on his right side. Otherwise no other tingling or numbness. Denied any fever or chills. Objective Data Objective Data Vital Signs: Vital Signs Temp Pulse Resp BP Pulse Ox 97.7 F L 60 16 166/97 H 96 12/11/21 14:30 12/11/21 14:30 12/11/21 14:30 12/11/21 14:30 12/11/21 14:30 Oxygen Delivery Method Room Air Weight: 113.9 kg Body Mass Index (BMI) 35.0 Intake & Output: Intake and Output for Last 24 Hours 12/09/21 12/10/21 12/11/21 23:59 23:59 23:59 Intake Total 480 / 480 Output Total 0 / 0 Balance 480 / 480 Lab / Micro Data Result Diagrams: 12/11/21 06:41 12/11/21 06:41 Labs: Laboratory Results - last 24 hr 12/10/21 22:51: POC Glucose 106 12/10/21 23:14: WBC 8.1, RBC 4.58 L, Hgb 16.8 H, Hct 47.4, MCV 103.5 H, MCH 36.7 H, MCHC 35.4, RDW Std Deviation 47.8 H, RDW Coeff of Mark 12.4, Plt Count 231, MPV 10.4, Immature Gran % (Auto) 0.400, Neut % (Auto) 45.8 L, Lymph % (Auto) 37.0, [place] % (Auto) 13.7 H, Eos % (Auto) 2.2, Baso % (Auto) 0.9, Absolute Neuts (auto) 3.7, Absolute Lymphs (auto) 2.98, Nucleated RBC % 0 12/10/21 23:14: PT 13.4, INR 1.1, APTT 29.3 12/10/21 23:14: Sodium 137, Potassium 4.2, Chloride 104, Carbon Dioxide 27.0, Anion Gap 6, BUN 13, Creatinine 1.08, Estim Creat Clear Calc 69.72, Est GFR (MDRD) Af Amer 87, Est GFR (MDRD) Non-Af 72, BUN/Creatinine Ratio 12.0, Glucose 106, Calcium 8.9, Magnesium 2.2, Troponin I High Sens 4 12/11/21 06:41: WBC 5.7, RBC 4.34 L, Hgb 15.9, Hct 45.2, MCV 104.1 H, MCH 36.6 H , MCHC 35.2, RDW Std Deviation 48.4 H, RDW Coeff of Mark 12.5, Plt Count 214, MPV 10.2, Immature Gran % (Auto) 0.200, Neut % (Auto) 47.7, Lymph % (Auto) 34.2, [place] % (Auto) 13.2 H, Eos % (Auto) 3.5, Baso % (Auto) 1.2 H, Absolute Neuts (auto) 2.7, Absolute Lymphs (auto) 1.94, Nucleated RBC % 0 12/11/21 06:41: Sodium 136, Potassium 4.6, Chloride 104, Carbon Dioxide 27.0, Anion Gap 5, BUN 13, Creatinine 1.03, Estim Creat Clear Calc 73.11, Est GFR (MDRD) Af Amer 92, Est GFR (MDRD) Non-Af 76, BUN/Creatinine Ratio 12.6, Glucose 117 H, Calcium 8.7, Total Bilirubin 0.40, AST 28, ALT 45, Alkaline Phosphatase 70, Total Protein 7.0, Albumin 3.3, Globulin 3.7, Albumin/Globulin Ratio 0.9, Triglycerides 123, Cholesterol 219 H, LDL Cholesterol 138 H, VLDL Cholesterol 25, HDL Cholesterol 56 12/11/21 06:41: Hemoglobin A1c 5.9 H Radiography Diagnostic Testing: Radiology Impression Brain CT 12/10/21 23:10 IMPRESSION: Negative head/brain CT without intravenous contrast. Electronically Signed: Willy Hargrove MD at 23:46 EDT , Head/Neck CTA 12/10/21 23:10 IMPRESSION: No acute findings in the arteries of the head and neck. Electronically Signed: Willy Hargrove MD at 0:21 EDT , Chest X-Ray 12/10/21 23:35 IMPRESSION: No radiographic evidence of acute cardiopulmonary disease. Electronically Signed: Willy Hargrove MD at 23:45 EDT , Brain MRI 12/11/21 03:18 ADDENDUM: 12/11/21 1053 Echocardiogram 12/11/21 03:18 Interpretation Summary The study was technically difficult. Left ventricular systolic function is normal. The estimated ejection fraction is 60 %. Apical false tendon noted. Trivial mitral valve insufficiency. Trivial tricuspid valve insufficiency. Mild focal aortic valve thickening. Unable to estimate RV systolic pressure/pulmonary artery pressure due to technically difficult study. Diastolic function is indeterminate. Bubble contrast study negative for right to left interatrial shunt. Ordering Physician: Isreal Browning Referring Physician: Zurdo Yo Performed By: Mónica Vaughn, IBIS, RVT Physical Exam Narrative Physical exam: General: Alert, Oriented x3, Cooperative, No apparent distress, Well developed HEENT: Atraumatic Oral: Moist Mucosa Neck: Supple Lungs: Clear to auscultation Cardiovascular: HS I+II, regular, no murmurs Abdomen: Bowel Sounds Present, Soft, Non Tender Extremities: No edema Skin: No rashes, No breakdown Neurological: Grossly intact except for slight dysarthria Psych/Mental Status: Appropriate Assessment & Plan Assessment/Plan (1) Acute CVA (cerebrovascular accident): (2) Hyperlipemia: (3) Hypertension: PLAN: 1. Acute small to moderate sized infarct on the left merle Patient with multiple cardiovascular comorbidities Initial brain CT as well as CT of the head was unremarkable MRI brain showed the above 2D echo shows an EF of 60%, negative bubble study, no valvular abnormalities HbA1c is 5.9, total cholesterol 219, triglyceride 123, LDL 138, HDL 56 Continue on aspirin, Plavix, statin PT/OT to evaluate and treat SOC consult 2. Hypertension, slightly uncontrolled, resume home lisinopril 3. Hyperlipidemia, continue statin 4. PAMELA, on CPAP 5. DVT prophylaxis?Lovenox subcu Charges/Coding Visit Charges Inpatient E&M: 80821 Subs Hosp L2
[2021-12-11] MEDS: Atorvastatin Calcium 80 MG Tablet PO (20:38)
[2021-12-12 00:40] VITALS: BP 140/78; PULSE 46; RESP 16; TEMP 37.1; O2SAT 94
[2021-12-12 03:59] VITALS: PULSE 45
[2021-12-12 04:40] VITALS: BP 145/88; PULSE 48; RESP 18; TEMP 36.6; O2SAT 95
[2021-12-12 05:00] VITALS: BMI 35.0
[2021-12-12 07:02] VITALS: PULSE 47
[2021-12-12 07:30] VITALS: O2SAT 96
[2021-12-12 08:40] VITALS: BP 167/79; PULSE 63; RESP 16; TEMP 36.7; O2SAT 97
[2021-12-12] MEDS: Lisinopril 40 MG Tablet PO (08:51)
[2021-12-12] MEDS: Aspirin 81 MG TAB.CHEW PO (08:51)
[2021-12-12] MEDS: Enoxaparin 40 MG/0.4 ML Syringe SC (08:51)
[2021-12-12] MEDS: Clopidogrel Bisulfate 75 MG Tablet PO (08:52)
--- NOTE | 2021-12-12 10:33 | DS.PCM_ITS ---
Providers Date of Admission: 12/11/21 Date of Discharge: 12/12/21 Primary Care Physician: Dr. Emanuel Yo MD Reason For Visit: STROKE LIKE SYMPTOMS Diagnosis Discharge Diagnosis (1) Acute CVA (cerebrovascular accident): Status: Acute Code(s): I63.9 - Cerebral infarction, unspecified (2) Hyperlipemia: Status: Chronic Code(s): E78.5 - Hyperlipidemia, unspecified (3) Hypertension: Status: Chronic Code(s): I10 - Essential (primary) hypertension Medications at Discharge Home Medications lisinopril 40 mg PO DAILY 12/11/21 aspirin 81 mg PO BREAKFAST 30 Days #30 tab 12/12/21 atorvastatin 80 mg PO QHS 30 Days #30 tab 12/12/21 clopidogrel 75 mg PO DAILY 21 Days #21 tab 12/12/21 Hospital Course Operations None Procedures None Summary of Care Provided Minutes Spent on Discharge: 35 Hospital Course: 66-year old with past medical history of PAMELA, on CPAP, hypertension who presented with strokelike symptoms, numbness in his right upper and lower extremities as well as slurred speech. Patient noticed that his right leg was dragging and he was unable to stand on it because he felt weak. In the ED, his NIHSS score was 3. Patient had dysarthria with drift in his right leg. CT of the brain as well as CTA of the head and neck was unremarkable. His blood pressure was slightly elevated. Patient was admitted to the progressive care unit and monitored. He underwent stroke work-up. MRI of the brain was positive for small to moderate size inf arct of the left merle. 2D echo shows EF of 60%, negative bubble study, no valvular abnormality. His HbA1c was 5.9,total cholesterol 219, triglyceride 123, LDL 138, HDL 56. He was continued on aspirin, Plavix and statin. Telemetry neurology was consulted. He was discharged on aspirin and Plavix for 21 days and then aspirin only. He will need to follow-up with neurology in the outpatient. Physical Exam Narrative Physical exam: General: Alert, Oriented x3, Cooperative, No apparent distress, Well developed HEENT: Atraumatic Oral: Moist Mucosa Neck: Supple Lungs: Clear to auscultation Cardiovascular: HS I+II, regular, no murmurs Abdomen: Bowel Sounds Present, Soft, Non Tender Extremities: No edema Skin: No rashes, No breakdown Neurological: Grossly intact except for slight dysarthria Psych/Mental Status: Appropriate Weight / BMI Weight Weight: 113.9 kg Body Mass Index (BMI) 35.0 ABG / Lab / Microbiology Data Result Diagrams: 12/11/21 06:41 12/11/21 06:41 Radiography Diagnostic Testing: Radiology Impression Brain MRI 12/11/21 03:18 ADDENDUM: 12/11/21 1053 Echocardiogram 12/11/21 03:18 Interpretation Summary The study was technically difficult. Left ventricular systolic function is normal. The estimated ejection fraction is 60 %. Apical false tendon noted. Trivial mitral valve insufficiency. Trivial tricuspid valve insufficiency. Mild focal aortic valve thickening. Unable to estimate RV systolic pressure/pulmonary artery pressure due to technically difficult study. Diastolic function is indeterminate. Bubble contrast study negative for right to left interatrial shunt. Ordering Physician: Isreal Browning Referring Physician: Zurdo Yo Performed By: Mónica Vaughn, IBIS, RVT D/C Instructions Discharge Diet: Low fat / Low cholesterol and 2000 mg Sodium Diet Meaningful Use Info Meaningful Use Diagnoses (Choose all that apply): Ischemic CVA CVA Therapy Assessed for PT,OT and/or ST?: Yes Ischemic Stroke Antithrombotic order at d/c?: No Reason antithrombotic not ordered: Treatment not Indicated Dx of Atrial fib/flutter?: No Anticoagulant at discharge?: No Reason anticoagulant not ordered: Treatment not Indicated Statins at discharge?: Yes Primary Dx Acute Ischemic CVA?: Yes IV tPA ordered during stay?: No Reason IV t-PA not ordered: Treatment not Indicated Discharge Plan Admission Admit Date/Time: 12/11/21 11:52 Primary Reason for Your Visit: Acute CVA Attending Provider: Lyssa Vick Primary Care Provider: Emanuel Yo Instructions Additional Instructions / Restrictions: Take note of changes to your medications. Follow-up with your primary care doctor and neurology referral. Discharge Orders/Prescriptions Prescriptions: New aspirin 81 mg Tablet,Chewable 81 mg PO BREAKFAST 30 Days Qty: 30 RF: 0 atorvastatin 80 mg Tablet 80 mg PO QHS 30 Days Qty: 30 RF: 0 clopidogrel 75 mg Tablet 75 mg PO DAILY 21 Days Qty: 21 RF: 0 Continued lisinopril 40 mg Tablet 40 mg PO DAILY RF: 0 Referrals / Follow Up: Emanuel Yo MD [Primary Care Provider] - In 1 Week (within 5-7 days) Disposition Disposition (needs filled in before D/C Order can be placed): Home, Self Care Charges/Coding Visit Charges Inpatient E&M: 45947 Disch Hosp
--- NOTE | 2021-12-12 10:33 | PCM.DC ---
Discharge Instructions Diet Discharge Diet: Low fat / Low cholesterol and 2000 mg Sodium Diet Activity Discharge Activity: Return to Normal Activity Follow Up Care Test Results: Test results from this visit will be discussed in further detail at your follow-up appointment, if applicable. Discharge Plan Admission Admit Date/Time: 12/11/21 11:52 Primary Reason for Your Visit: Acute CVA Attending Provider: Lyssa Vick Primary Care Provider: Emanuel Yo Instructions Additional Instructions / Restrictions: Take note of changes to your medications. Follow-up with your primary care doctor and neurology referral. Discharge Orders/Prescriptions Prescriptions: New aspirin 81 mg Tablet,Chewable 81 mg PO BREAKFAST 30 Days Qty: 30 RF: 0 atorvastatin 80 mg Tablet 80 mg PO QHS 30 Days Qty: 30 RF: 0 clopidogrel 75 mg Tablet 75 mg PO DAILY 21 Days Qty: 21 RF: 0 Continued lisinopril 40 mg Tablet 40 mg PO DAILY RF: 0 Referrals / Follow Up: Emanuel Yo MD [Primary Care Provider] - In 1 Week (within 5-7 days) Disposition Disposition (needs filled in before D/C Order can be placed): Home, Self Care
== END 2021-12-12 11:44 | disposition home or self-care (01) | DRG 66 ==
LOC: ED 12-11 02:14 → PCU 12-11 02:45
PROVIDERS: Admitting Provider Hospitalist; Emergency Provider Emergency Medicine; PCP Family Medicine; Referring Provider Internal Medicine; Visit Provider Internal Medicine
DX: I63.9 Cerebral infarction, unspecified (principal); E66.9 Obesity, unspecified; E78.5 Hyperlipidemia, unspecified; G47.33 Obstructive sleep apnea (adult) (pediatric); I10 Essential (primary) hypertension; G89.29 Other chronic pain; Z79.82 Long term (current) use of aspirin; Z79.899 Other long term (current) drug therapy; R29.703 NIHSS score 3; R47.81 Slurred speech; R47.1 Dysarthria and anarthria; Z68.35 Body mass index [BMI] 35.0-35.9, adult
CPT/HCPCS: 36415; 70450; 70496; 70498; 70551; 71045; 80048; 80053; 80061; 82962; 83036; 83735; 84484; 85025; 85610; 85730; 92507; 92610; 93005; 93306; 97162; 97166; 99284; Q9967; A4216

== ENCOUNTER 2021-12-29 08:15 | Outpatient (CLI) | payer MEDICARE, SELFPAY ==
[2021-12-29 10:46] LABS: Anion Gap 5 (5-15); BUN 11 mg/dL (7-18); BUN/Creat Ratio 11.2 RATIO (10-20); Calcium,Total 9.5 mg/dL (8.5-10.1); Chloride 104 mmol/L (98-107); Cholesterol 123 mg/dL (200); Creatinine, Serum 0.98 mg/dL (0.70-1.30); EST Glomerular Filtration Rate 80 mL/min (>60); Est Glom Filt Rate - Afr Amer 97 mL/min (>60); Glucose 115 mg/dL (74-106); High Density Lipoprotein 49 mg/dL; Potassium 4.6 mmol/L (3.5-5.1); Sodium Level 137 mmol/L (136-145); Triglycerides 88 mg/dL; Very Low Density Lipoprotein 18 mg/dL (5-40)
== END 2021-12-29 23:59 | disposition home or self-care (01) ==
LOC: MFPLAB 08:18
PROVIDERS: PCP Family Medicine; Referring Provider Family Medicine; Visit Provider Family Medicine
DX: I10 Essential (primary) hypertension (principal); Z12.5 Encounter for screening for malignant neoplasm of prostate
CPT/HCPCS: 36415; 80048; 80061; 84153; G0103

== ENCOUNTER → 2022-05-17 | Outpatient (CLI) | payer MEDICARE, SELFPAY ==
[2022-05-17 10:48] LABS: ALB/GLOB Ratio 0.8 RATIO (0.9-2.4); AST(SGOT) 53 U/L (15-37); Alanine Aminotransfer ALT/SGPT 88 U/L (16-61); Albumin, Serum 3.5 g/dL (3.2-5.0); Alkaline Phosphatase 92 U/L (45-117); Anion Gap 8 (5-15); BUN 12 mg/dL (7-18); BUN/Creat Ratio 12.2 RATIO (10-20); Calcium,Total 9.4 mg/dL (8.5-10.1); Chloride 102 mmol/L (98-107); Cholesterol 152 mg/dL (200); Creatinine, Serum 0.99 mg/dL (0.70-1.30); EST Glomerular Filtration Rate 80 mL/min (>60); Est Glom Filt Rate - Afr Amer 97 mL/min (>60); Globulin 4.2 g/dL (2.2-4.2); Glucose 108 mg/dL (74-106); High Density Lipoprotein 71 mg/dL; Potassium 4.7 mmol/L (3.5-5.1); Protein, Total 7.7 g/dL (6.4-8.2); Sodium Level 137 mmol/L (136-145); Triglycerides 180 mg/dL; Very Low Density Lipoprotein 36 mg/dL (5-40)
== END | disposition home or self-care (01) ==
PROVIDERS: PCP Family Medicine; Visit Provider Family Medicine
DX: I10 Essential (primary) hypertension (principal); E78.5 Hyperlipidemia, unspecified
CPT/HCPCS: 36415; 80053; 80061

== ENCOUNTER 2022-07-03 07:45 | Inpatient (IN) | payer MEDICARE, SELFPAY ==
[2022-07-03] VITALS (9 sets, daily range): BP systolic 130–146; BP diastolic 70–84; PULSE 60–71; RESP 16–18; TEMP 36.2–37.2; O2SAT 93–95; BMI 34.8; BMI 34.2
--- NOTE | 2022-07-03 08:05 | ED.VIS.LOWEX ---
HPI History of Present Illness HPI Narrative: 66-year-old [place] injuring his left hip. Now is unable to bear weight due to pain. He has had a total hip replacement on the right. Denies other injuries. Chief Complaint: Lower Extremity Injury Informant: patient Occured/Mechanism Mechanism/Context: Yes injury Onset/Context/Timing Onset: Today and Hours Context: Sudden Onset Timing: Continuous Quality of Pain: Sharp and Stabbing Current Severity: Moderate Maximum Severity: Moderate Associated Symptoms Associated Symptoms: Negative for Parasthesia, Weakness or Loss of Funtion Narrative Narrative: 66-year-old male history of hypertension. [place] injuring his left hip. Now unable to bear weight. Has had prior replacement of the right hip. Denies other injuries. Prior similar symptoms: Yes Recent Illness/Hospitalization: No PFSH PFSH Medical History HTN (hypertension) Hyperlipemia Home Medications lisinopril 40 mg tablet 40 mg PO DAILY 12/11/21 [History Last Taken Unknown] aspirin 81 mg chewable tablet 81 mg PO BREAKFAST 30 days #30 tabs 12/12/21 [Rx Last Taken Unknown] atorvastatin 80 mg tablet 80 mg PO QHS 30 days #30 tabs 12/12/21 [Rx Last Taken Unknown] Allergy/AdvReac Type Severity Reaction Status Date / Time No Known Allergies Allergy Verified 07/03/22 07:46 Family History Father Blood clot in vein Mother Heart disease Brother Heart disease Surgical History history of broken tail bone History of left knee replacement History of right hip replacement Social History household members: spouse number of children: 5 current occupational status: employed current occupation: self employeed [employer] Smoking Status: Never smoker alcohol intake: current alcohol intake frequency: a few times a month details: twice a week substance use type: does not use what type of physical activity do you participate in: other details: [employer], physical job ROS ROS ED ROS Narrative Denies recent illness. Review of Systems ROS Unobtainable: Denies due to encephalopathy Constitutional Constitutional ED: Denies chills or fever(s) Eyes Eyes: Denies blurry vision ENT ENT ED: Denies ear pain Cardiovascular Cardiovascular: Denies chest pain Respiratory/Chest Respiratory/Chest: Denies cough Gastrointestinal Gastrointestinal: Denies abdominal pain Genitourinary Genitourinary ED: Denies dysuria Musculoskeletal Musculoskeletal: Denies arthralgias Integumentary Denies abscess Neurologic Neurologic: Denies headache(s) Psychiatric Psychiatric: Denies anxiety Endocrine Endocrinology: Denies polydipsia Hematologic/Lymphatic Hematologic/Lymphatic: Denies easy bleeding Allergic/Immunologic Allergic/Immunologic ED: Denies mouth swelling or tongue swelling EXAM Physical Exam Narrative Exam Narrative: 58-year-old male vital signs stable afebrile. H EENT exam unremarkable atraumatic. Neck nontender. Lungs clear to auscultation bilaterally. Heart regular rhythm rate about 60 no murmur. Chest wall nontender. Abdomen soft nontender. Elbow girdle intact. Pain palpation of his left hip. Pain with active range of motion to the left hip. Left hip does appear to be shortened compared to the right. Right is nontender. Distal femur, left knee and lower leg ankle and foot are nontender. Dorsi plantarflexion intact. Upper extremities are nontender. 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 Neurologically is awake and alert. Answering questions following commands. Const Vital Signs: 07/03/22 07:46 Temperature 97.2 F L Temperature Source Temporal Pulse Rate 60 Respiratory Rate 18 Blood Pressure 146/84 H Blood Pressure Mean 104 Pulse Ox 95 Oxygen Delivery Method Room Air Positive well nourished, well developed and obese; Negative for cachectic, contractures or unkempt General Appearance ED: well developed and NAD; Negative for unkempt, cachectic or contractures Nutritional Appearance: obese; Negative for cachectic HEENT Reports moist mucous membranes normocephalic and atraumatic; Negative for trauma or tenderness Eyes PERRL General Eye ED: Negative for other Neck full ROM and supple Thyroid: Negative for tender Lymph Lymphatic: Negative for other Chest Wall inspection of chest normal and palpation of chest normal Chest: Negative for other Resp normal respiratory effort, no retractions and clear to auscultation bilaterally Effort and Inspection: Negative for pain with movement Auscultation: Negative for rales or rhonchi Percussion: Negative for other Cardio regular rate, regular rhythm, S1 normal heart sound, S2 normal heart sound and no murmurs Rate: Negative for bradycardia Rhythm: Negative for abnormal rhythm Bruits: Negative for other GI non-tender, non-distended and no masses Inspection: Negative for abdominal distention Auscultation: normoactive bowel sounds Palpation: soft; Negative for tender Bladder / Kidney Exam: No other Back/Spine no CVA tenderness General Back: Negative for CVA tenderness Cervical Spine: Negative for cervical spine tenderness Thoracic Spine / Upper Back: Negative for thoracic spinal tenderness Lumbar Spine / Lower Back: Negative for lumbar spinal tenderness or straight leg raise positive - left Extremity Negative for normal to inspection or full ROM Extremity Narrative: Tenderness to palpation of the left hip. Rotated. General Extremety ED: Yes weight-bearing difficulty; Negative for cyanosis or edema General Extremity: weight-bearing difficulty; Negative for cyanosis or edema Neuro oriented x3, CN's II-XII intact bilaterally, moves all extremities and no sensory deficits noted Sensorium / Orientation: alert, oriented to person, oriented to place and oriented to time; Negative for orientation impaired, confused, lethargic or stuporous Motor Exam: strength 5/5 throughout Psych mental status grossly normal Appearance: Negative for unkempt Speech: No other Mood & Affect: Negative for anxious Skin no wounds Lesions: no lesions Rashes: no rashes Trauma: Negative for abrasion MDM MDM MDM Narrative Medical decision making narrative: 66-year-old male [place] my concern is left hip fracture. X-rays being obtained. Also be treated with IV pain medications. IV morphine and Zofran. Left hip x-ray showed a left hip fracture. Preop labs were obtained. I have already spoke to orthopedics on-call Dr. Gagandeep Sarmiento. And hospitalist on page for admission. Lab Data Attestation: I reviewed the patient's lab results. Lab results narrative: CBC normal. White count 8.9. H&H of 15.2 and 44. PT, INR and PTT are normal. Electrolytes unremarkable gap is 6 normal BUN and creatinine. Glucose 131. Labs: Laboratory Results - last 24 hr 07/03/22 07/03/22 07/03/22 08:30 08:30 08:30 WBC 8.9 RBC 4.46 L Hgb 15.2 Hct 44.3 MCV 99.3 H MCH 34.1 H MCHC 34.3 RDW Std Deviation 44.1 H RDW Coeff of Mark 12.1 Plt Count 224 MPV 10.4 PT 14.9 INR 1.2 APTT 27.3 Sodium 136 Potassium 4.7 Chloride 103 Carbon Dioxide 27.0 Anion Gap 6 BUN 15 Creatinine 1.09 Estim Creat Clear Calc 69.08 Est GFR (MDRD) Af Amer 86 Est GFR (MDRD) Non-Af 71 BUN/Creatinine Ratio 13.8 Glucose 131 H Calcium 9.3 Radiography Diagnostic Testing: Clinical Impression(s) from Imaging Studies Hip/Pelvis X-Ray 07/03/22 08:09 IMPRESSION: Impacted fracture of the left femoral neck. Electronically Signed: Ismael Ruffin MD at 8:34 EDT , Pelvis and left hip x-ray, 3 views, interpreted by myself shows left hip fracture. Appears to be a femoral neck fracture. Discussed with patient and orthopedic physician on-call. Discharge Plan Dx/Rx/DC Orders Clinical Impression: Fall, Closed fracture of left hip, History of primary hypertension Disposition Disposition: Acute Care Hospital [facility]
--- NOTE | 2022-07-03 08:09 | RAD_ITS ---
STUDY: X-RAY - PELVIS AND LEFT HIP REASON FOR EXAM: Male, 66 years old. Fall TECHNIQUE: 3 views of the pelvis and hip. COMPARISON: None. FINDINGS: There is a non-specific bowel gas pattern. Normal visualized soft tissue structures. Degenerative changes in the lower lumbar spine. Normal bilateral iliac wings, sacroiliac joints and visualized sacrum. Normal bilateral superior and inferior pubic rami. Normal pubic symphysis. Normal bilateral ischial tuberosities. Status post right hip arthroplasty. Impacted fracture of the left femoral neck. RAD/HIP, UNI W/ Pelvis 2-3 Views IMPRESSION: Impacted fracture of the left femoral neck. Electronically Signed: Ismael Ruffin MD at 8:34 EDT ,
[2022-07-03] MEDS: Ondansetron 4 MG/2 ML Vial IV (08:28)
[2022-07-03] MEDS: morphine 8 MG/ML Syringe IV (08:32)
--- NOTE | 2022-07-03 08:37 | NURSING ---
DR DOHERTY FOR DR CLARKE
[2022-07-03 08:47] LABS: Hematocrit 44.3 % (40-54); Hemoglobin 15.2 g/dL (13.0-16.5); Mean Corp Hgb Conc 34.3 g/dL (32-36); Mean Corpuscular Hgb 34.1 pg (27.0-32.0); Mean Corpuscular Volume 99.3 fL (80-94); Mean Platelet Vol. 10.4 fl (6.2-12.0); Platelet Count 224 K/mm3 (150-450); RBC Distribution Width CV 12.1 % (11.6-14.6); RBC Distribution Width SD 44.1 fl (35.1-43.9); Red Blood Count 4.46 M/mm3 (4.6-6.2); White Blood Count 8.9 K/mm3 (4.4-11.0)
[2022-07-03 08:51] LABS: International Normalized Ratio 1.2; Partial Thromboplast Time 27.3 Seconds (24.1-36.2); Prothrombin Time (Protime)PT. 14.9 SECONDS (11.7-14.9)
--- NOTE | 2022-07-03 08:53 | NURSING ---
MED SURG DOHERTY FALL, LEFT HIP FX
[2022-07-03 09:11] LABS: Anion Gap 6 (5-15); BUN 15 mg/dL (7-18); BUN/Creat Ratio 13.8 RATIO (10-20); Calcium,Total 9.3 mg/dL (8.5-10.1); Chloride 103 mmol/L (98-107); Creatinine, Serum 1.09 mg/dL (0.70-1.30); EST Glomerular Filtration Rate 71 mL/min (>60); Est Glom Filt Rate - Afr Amer 86 mL/min (>60); Estimated Creatinine Clearance 69.08 ml/min; Glucose 131 mg/dL (74-106); Potassium 4.7 mmol/L (3.5-5.1); Sodium Level 136 mmol/L (136-145)
--- NOTE | 2022-07-03 09:56 | PCM.HP.STD ---
HPI - General General Date of Admission: 07/03/22 Date of Service: 07/03/22 Chief Complaint: Left leg pain HPI Narrative VELIA WANG, is a 66 M with a past medical history of CVA in December, right hip fracture after a fall with a subsequent hip replacement, and hypertension who presented to to [facility] ER 07/03/2022 after running to [place] gait [place] the airport and tripping. He was found to have an impacted left femoral neck fracture. Ortho was contacted in the ER by Dr. Andrew, and admission with consult was recommended. Upon exam Mr. Wang had just received morphine, and pain was significantly improved. He said while he is just laying there his leg does not hurt significantly, primarily when moving around. Has had some left ankle pain intermittently from getting on and off his tractor which she said is not worse, has been present for several weeks but no trauma to the area either. Denies any new numbness or tingling anywhere. No focal weakness. Reports fall was from tripping and was mechanical, no dizziness lightheadedness, no legs giving out from under him. Denied hitting his head or loss of consciousness, no headache, no changes in vision. No back pain. ROS otherwise negative. [facility] Medical History HTN (hypertension) Hyperlipemia Home Medications lisinopril 40 mg tablet 40 mg PO DAILY 12/11/21 [History Last Taken Unknown] aspirin 81 mg chewable tablet 81 mg PO BREAKFAST 30 days #30 tabs 12/12/21 [Rx Last Taken Unknown] atorvastatin 80 mg tablet 80 mg PO QHS 30 days #30 tabs 12/12/21 [Rx Last Taken Unknown] Allergy/AdvReac Type Severity Reaction Status Date / Time No Known Allergies Allergy Verified 07/03/22 07:46 Family History Father Blood clot in vein Mother Heart disease Brother Heart disease Surgical History history of broken tail bone History of left knee replacement History of right hip replacement Social History household members: spouse number of children: 5 current occupational status: employed current occupation: self employeed [employer] Smoking Status: Never smoker alcohol intake: current alcohol intake frequency: a few times a month details: twice a week substance use type: does not use what type of physical activity do you participate in: other details: [employer], physical job ROS Constitutional Constitutional: Denies change in weight, chills, fever(s) or night sweats Eyes Eyes: Denies change in vision ENT HEENT: Denies headache(s), nasal congestion or sore throat Cardiovascular Cardiovascular: Denies chest pain or palpitations Respiratory/Chest Respiratory/Chest: Denies cough or productive cough Gastrointestinal Gastrointestinal: Reports other Details: denies changes in bowel or bladder ; Denies abdominal pain Genitourinary Genitourinary: Reports other Details: denies changes in urination Musculoskeletal Musculoskeletal: Reports other Details: Notes left hip/upper leg pain that is primarily when he is moving. Occasionally has left ankle pain that is unchanged after the fall. Additionally his chronic left shoulder pain which has bothered him slightly more since the fall. Neurologic Neurologic: Denies dizziness, focal weakness, headache(s), numbness or tingling Psychiatric Psychiatric: Denies anxiety Hematologic/Lymphatic Hematologic/Lymphatic: Denies easy bleeding Allergic/Immunologic Allergic/Immunologic: Reports other Details: denies rashes Vital Signs Vital Signs Vital Signs: 07/03/22 07:46 07/03/22 09:04 Temperature 97.2 F L 97.5 F L Temperature Source Temporal Temporal Pulse Rate 60 63 Respiratory Rate 18 18 Blood Pressure 146/84 H 133/70 H Blood Pressure Mean 104 91 Pulse Ox 95 93 Oxygen Delivery Method Room Air Room Air Weight Weight: 111.5 kg Body Mass Index (BMI) 34.2 Physical Exam Const alert and no apparent distress Constitutional Narrative: Oriented HEENT normocephalic and head/scalp atraumatic Eyes Eyes Narrative: EOM grossly intact, anicteric Neck supple Resp normal respiratory effort and clear to auscultation bilaterally Cardio regular rate and regular rhythm GI soft to palpation, non-tender and non-distended Extremity Extremity Narrative: Trace pitting edema, moving both lower extremities, pulses 2+ dorsalis pedis. Left ankle not swollen or tender to palpation. Neuro moves all extremities Neuro Narrative: No overt focal deficits appreciated Psych Psych Narrative: Cooperative Results Lab / Micro Data Result Diagrams: 07/03/22 08:30 07/03/22 08:30 Labs: Laboratory Results - last 24 hr 07/03/22 08:30: WBC 8.9, RBC 4.46 L, Hgb 15.2, Hct 44.3, MCV 99.3 H, MCH 34.1 H, MCHC 34.3, RDW Std Deviation 44.1 H, RDW Coeff of Mark 12.1, Plt Count 224, MPV 10.4 07/03/22 08:30: PT 14.9, INR 1.2, APTT 27.3 07/03/22 08:30: Sodium 136, Potassium 4.7, Chloride 103, Carbon Dioxide 27.0, Anion Gap 6, BUN 15, Creatinine 1.09, Estim Creat Clear Calc 69.08, Est GFR (MDRD) Af Amer 86, Est GFR (MDRD) Non-Af 71, BUN/Creatinine Ratio 13.8, Glucose 131 H, Calcium 9.3 Radiology Impression Hip/Pelvis X-Ray 07/03/22 08:09 IMPRESSION: Impacted fracture of the left femoral neck. Electronically Signed: Ismael Ruffin MD at 8:34 EDT , Assessment & Plan Assessment/Plan (1) Closed left femoral fracture: PLAN: Plan #Impacted fracture of the left femoral neck secondary to mechanical fall Evidence of impacted fracture of the left femoral neck on x-ray Ortho contacted by ED and recommended admission Orthopedic consult placed Pain control PT/OT for after surgery Supportive care #Essential primary hypertension Continue lisinopril #History of CVA Over 6 months ago?MRI of the brain had small to moderate size infarct of the left merle Was discharged on aspirin, Plavix, statin Now on aspirin and statin at home Continue statin at this time Was on a blood thinner because per he has Factor V Leiden ?trait Denies any history of DVT or PE They were unable to say what blood thinner he was on but it was discontinued 1.5 months ago and he has done well #DVT ppx: SCDs Alessandra Arias MD Charges/Coding Visit Charges Inpatient E&M: 79202 Init Hosp L2
--- NOTE | 2022-07-03 11:51 | EKG12_ITS ---
Test Reason : PRE-OP Blood Pressure : / mmHG Vent. Rate : 071 BPM Atrial Rate : 071 BPM P-R Int : 186 ms QRS Dur : 088 ms QT Int : 378 ms P-R-T Axes : 038 -04 035 degrees QTc Int : 410 ms Normal sinus rhythm Normal ECG No previous ECGs available Confirmed by KRISTIN ANTONIO, JAZMYN ([id number]), subeditor VIRI EDOUARD ([id number]) on 07/04/2022 2:11:34 PM Referred By: CHAS Confirmed By:JAZMYN FOSTER MD
--- NOTE | 2022-07-03 12:15 | RAD_ITS ---
STUDY: X-RAY CHEST REASON FOR EXAM: Male, 66 years old. Preoperative exam. TECHNIQUE: Single PA view of the chest. COMPARISON: 12/10/2021. FINDINGS: Hypoventilatory changes. No focal infiltrate is seen. There is no demonstrated pleural abnormality. There is borderline cardiomegaly. Normal mediastinum and simone. Normal visualized pulmonary arteries. Normal visualized aortic arch and descending thoracic aorta. Stable soft tissues and osseous structures. There is no demonstrated abnormality of the visualized soft tissue structures of the upper abdomen. RAD/Chest 1 View IMPRESSION: No active pulmonary disease. Electronically Signed: Ismael Ruffin MD at 12:30 EDT ,
[2022-07-03] MEDS: Acetaminophen 500 MG Tablet 1000 MG PO ×2 (14:07→21:04)
[2022-07-03] MEDS: Morphine 4 MG/ML Syringe IV ×2 (14:07→20:49)
[2022-07-03] MEDS: oxyCODONE 5 MG Tablet PO ×2 (18:18→22:19)
[2022-07-03] MEDS: Atorvastatin Calcium 80 MG Tablet PO (21:04)
[2022-07-04] VITALS (15 sets, daily range): BP systolic 111–145; BP diastolic 60–87; PULSE 53–84; RESP 16–18; TEMP 36.6–37.2; O2SAT 92–95; BMI 35.1
--- NOTE | 2022-07-04 | HIP_PTH ---
PATIENT: VELIA WANG LOC: MS3 U#:[id number] AGE/SX: 66/M ROOM: [facility] [place] RE07/03/[address]: Dr. Lyssa Vick MD : 1955 BED: 1 DIS: 07/05/2022 SPEC #: [id number] RECD: 07/05/22 07:00 STATUS: DANIELA REQ #: [id number] WILLIAM: 07/04/22 00:[address]: Willy Gill DEPT: SURGICAL PATHOLOGY RECD BY: Primo Pabon ENTERED: 07/05/22 09:17 SP TYPE: TOTAL HIP OTHR DR: MD Dr. Zurdo Ballard MD Dr. Rodney Miller, MD Tissues: Hip, NOS Procedures: Decalcification bone/plaque Surgery Specimen Level IV Comments: @ Ordering doctor for DEC edited from to DR.[email or web address] Agee by DARELL at 07/05/22 1423 @ Ordering doctor for SUIV edited from to DR.[email or web address] Agee by DARELL at 07/05/22 1423 @ Submitting doctor edited from to DR.[email or web address] Agee by DARELL at 07/05/22 1423 HEADER OPERATION: Total hip replacement PRE-OP DIAGNOSIS: Impacted fracture of left femoral neck TISSUE SUBMITTED: Left femoral head bone MICROSCOPIC DIAGNOSIS Left femoral head, fracture: Consistent with organizing fracture callus. AM:[place] 07/08/2022 MICROSCOPIC DESCRIPTION Slides are reviewed. GROSS DESCRIPTION Received is one container labeled with the patient's name and designated left femoral head bone. The specimen consists of a joyce femoral head measuring 4.5 x 4.5 x 4.3 cm. The articular surface is essentially unremarkable. The non-articular surface is hemorrhagic and irregular consistent with fracture site. Also present in the specimen container are multiple irregular fragments of bone, bone reamings and soft tissue measuring in aggregate 10 x 9 x 1.5 cm. Rehabilitation Services Manager sections are submitted in two cassettes as follows: 1 - bone reamings and soft tissue, 2 - bone after decalcification. / AM:[place] 07/05/2022 TC:5 CPT: 16557, 92455
[2022-07-04] MEDS: Morphine 4 MG/ML Syringe IV ×2 (00:35→10:02)
[2022-07-04] MEDS: oxyCODONE 5 MG Tablet PO (05:59)
[2022-07-04] MEDS: Acetaminophen 500 MG Tablet 1000 MG PO ×3 (06:00→21:52)
[2022-07-04 06:54] LABS: Absolute Lymphocyte Count 2.12 X10^3/uL (0.83-4.51); Absolute Neutrophil Count 5.4 X10^3/uL (2.0-7.7); Basophil# 0.06 X10^3/uL; Basophil% 0.7 % (0-1); Eosinophil# 0.37 X10^3/uL; Hematocrit 42.7 % (40-54); Hemoglobin 14.6 g/dL (13.0-16.5); Lymphocyte # 2.12 X10^3/ul (0.83-4.51); Lymphocyte % 23.1 % (19-41); Mean Corp Hgb Conc 34.2 g/dL (32-36); Mean Corpuscular Hgb 33.8 pg (27.0-32.0); Mean Corpuscular Volume 98.8 fL (80-94); Mean Platelet Vol. 10.7 fl (6.2-12.0); Monocyte# 1.23 X10^3/uL; Monocyte% 13.4 % (0-10); NRBC Flagged by Analyzer 0 % (0-5); Neutrophil # 5.35 X10^3/uL (2.7-7.7); Neutrophil % 58.5 % (47-70); Platelet Count 193 K/mm3 (150-450); RBC Distribution Width SD 43.6 fl (35.1-43.9); Red Blood Count 4.32 M/mm3 (4.6-6.2); White Blood Count 9.2 K/mm3 (4.4-11.0)
[2022-07-04 07:07] LABS: ALB/GLOB Ratio 0.8 RATIO (0.9-2.4); AST(SGOT) 38 U/L (15-37); Alanine Aminotransfer ALT/SGPT 58 U/L (16-61); Alkaline Phosphatase 82 U/L (45-117); Anion Gap 7 (5-15); BUN 14 mg/dL (7-18); Calcium,Total 8.7 mg/dL (8.5-10.1); Chloride 100 mmol/L (98-107); EST Glomerular Filtration Rate 79 mL/min (>60); Est Glom Filt Rate - Afr Amer 95 mL/min (>60); Globulin 3.6 g/dL (2.2-4.2); Glucose 109 mg/dL (74-106); Potassium 4.1 mmol/L (3.5-5.1); Protein, Total 6.6 g/dL (6.4-8.2); Sodium Level 134 mmol/L (136-145)
[2022-07-04] MEDS: Lactated Ringers 1,000 ML 15 ML IV (10:02)
--- NOTE | 2022-07-04 10:08 | PN.HOSP_ITS ---
Subjective Subjective Follow-up on acute left hip fracture: Patient was seen and examined. His pain is fairly controlled. He denies any chest pain or dizziness or palpitation. He will be going for surgery today. Objective Data Objective Data Vital Signs: Vital Signs Temp Pulse Resp BP Pulse Ox O2 Del Method 98.1 F 68 16 142/77 H 93 Room Air 07/04/22 06:01 07/04/22 06:01 07/04/22 06:01 07/04/22 06:01 07/04/22 07:23 07/04/22 07:23 Oxygen Delivery Method Room Air Weight: 114.1 kg Body Mass Index (BMI) 34.2 Intake & Output: Intake and Output for Last 24 Hours 07/02/22 07/03/22 07/04/22 23:59 23:59 23:59 Intake Total 900 / 900 600 / 600 Output Total 1050 / 1050 800 / 800 Balance -150 / -150 -200 / -200 Lab / Micro Data Result Diagrams: 07/04/22 05:29 07/04/22 05:29 Labs: Laboratory Results - last 24 hr 07/04/22 05:29: WBC 9.2, RBC 4.32 L, Hgb 14.6, Hct 42.7, MCV 98.8 H, MCH 33.8 H, MCHC 34.2, RDW Std Deviation 43.6, RDW Coeff of Mark 12.0, Plt Count 193, MPV 10.7, Immature Gran % (Auto) 0.300, Neut % (Auto) 58.5, Lymph % (Auto) 23.1, Mo no % (Auto) 13.4 H, Eos % (Auto) 4.0, Baso % (Auto) 0.7, Absolute Neuts (auto) 5.4, Absolute Lymphs (auto) 2.12, Nucleated RBC % 0 07/04/22 05:29: Sodium 134 L, Potassium 4.1, Chloride 100, Carbon Dioxide 27.0, Anion Gap 7, BUN 14, Creatinine 1.00, Estim Creat Clear Calc 75.30, Est GFR (MDRD) Af Amer 95, Est GFR (MDRD) Non-Af 79, BUN/Creatinine Ratio 14.0, Glucose 109 H, Calcium 8.7, Total Bilirubin 1.10 H, AST 38 H, ALT 58, Alkaline Phosphatase 82, Total Protein 6.6, Albumin 3.0 L, Globulin 3.6, Albumin/Globulin Ratio 0.8 L Radiography Diagnostic Testing: Radiology Impression Chest X-Ray 07/03/22 12:15 IMPRESSION: No active pulmonary disease. Electronically Signed: Ismael Ruffin MD at 12:30 EDT , Physical Exam Narrative Physical exam: General: Alert, Oriented x3, Cooperative, obese HEENT: Atraumatic Oral: Moist Mucosa Neck: Supple Lungs: Clear to auscultation Cardiovascular: HS I+II, regular, no murmurs Abdomen: Bowel Sounds Present, Soft, Non Tender Extremities: Left leg is externally rotated, tender to palpation Skin: No rashes, No breakdown Neurological: Grossly intact Psych/Mental Status: Appropriate Assessment & Plan Assessment/Plan (1) Closed fracture of left hip: (2) Fall: PLAN: Plan 1. Acute impacted fracture of the left femoral neck, traumatic, status post mechanical fall Patient to be going for surgery today Pain is fairly controlled Will continue postoperative recommendations 2. Hypertension, continue lisinopril 3. Hyperlipidemia, continue statin 4. History of CVA, continue statin, aspirin on hold now 5. DVT prophylaxis per orthopedics Charges/Coding Visit Charges Inpatient E&M: 45606 Subs Hosp L2
--- NOTE | 2022-07-04 11:22 | RAD_ITS ---
STUDY: X-RAY - PELVIS AND LEFT HIP REASON FOR EXAM: Male, 66 years old. Post Op -- AP both hips on single kristal/lateral of op hip PACU TECHNIQUE: 2 views of the pelvis and hip. COMPARISON: Comparison is made with prior examination dated 07/03/2022. FINDINGS: The patient is status post left total hip preplacement. There is good alignment. Postoperative soft tissue changes. RAD/Hip Min 2 Views (Portable) IMPRESSION: Status post left total hip replacement. There is good alignment. Postoperative soft tissue changes. Electronically Signed: Jae Stovall MD at 15:36 EDT ,
[2022-07-04] MEDS: Cefazolin 2 GM in 0.9% Normal Saline 100 ML IV (11:53)
--- NOTE | 2022-07-04 13:27 | OP.PCM_ITS ---
Report of Operation Date of Procedure: 07/04/22 Pre-Operative Diagnosis: Displaced, subcapital left hip fracture Post-Operative Diagnosis: same Surgery/Procedure Performed:: Left total hip replacement Description of Surgical Findings:: Report of Operation Date of Procedure: Pre-Operative Diagnosis: Displaced, subcapital fracture [ left ] hip Post-Operative Diagnosis: same Surgery/Procedure Performed: [ left ] THR founder and ceo: Chet Breen PA-C Type of Anesthesia: general Anesthesiologist: Sathish Snell M.D. Specimen's removed: bone Estimated Blood Loss (mL): 150 cc Implants: [place] Accolade 2 size 6 femoral stem, Trident tritanium size 50 head, +0 neck length MDM liner Surgical Indications: Patient has a displaced, subcapital fracture of the [left ] hip. They have fell running through the airport yesterday morning suffering this hip fracture. Patient has decided to undergo the above procedure Procedure Description: The patient was greeted in the preoperative area the [ left ] hip was marked with surgical marker preoperative antibiotics administered. The patient was then taken to or suite in stable condition. Preoperative tranexamic acid was also utilized. Once the patient was placed in the supine position on the operating room table and once adequate anesthesia was obtained they were then placed in the lateral decubitus position with the surgical hip facing the field. All bony prominences were well-padded. A commercial hip position was utilized. The appropriate extremity was then prepped and draped in usual sterile fashion. Ioban was placed on the skin. Surgical timeout was performed and surgery was commenced. A standard posterior approach to the hip was then performed. Incision was planned and carried out with a #10 blade scalpel. Dissection was then carried length of the incision to the IT band which was split proximally and distally. A Charnley retractor was then placed for soft tissue retraction exposing the piriformis. A standard posterior capsulotomy was performed. The fractured femoral neck was identified. A femoral neck osteotomy guide was used to milton the proximal femur. A femoral osteotomy was then created approximately 1 fingerbreadth above the lesser trochanter. The osteotomized bone and fractured femoral neck and head were removed. This was measured and placed on the back table. Once this was complete acetabular retractors were placed anteriorly and posteriorly. Labrum was then removed from the acetabulum exposing the entire cup of the acetabulum. Sequential reaming was then commenced and the acetabulum was medialized and sequentially widened in order to accommodate appropriate size cup. The acetabular cup was then impacted into position to the appropriate depth referencing approximately [40 degrees ] anteversion and [40 degrees ]of inclination. Excellent purchase was obtained. An appropriate size MDM liner was then placed. Attention was then turned to the femoral preparation. The hip was placed in the 90/90 position and a lateralizing box osteotome was utilized. Femoral starting awl was used followed by sequential broaching to the appropriate size. Excellent purchase was obtained with the stem no stem subsidence and excellent rotational stability was confirmed. A calcar reamer was then used in the trial head neck was placed on the broach. The hip was then located and taken through full range of motion flexion internal and external rotation as well as extension. Excellent stabi lity was noted no impingement was identified of the components and leg lengths appear to be appropriate. The hip was at this point dislocated and the trial femoral components were removed. The fin al femoral stem was then implanted and impacted to the appropriate depth. Again excellent purchase was obtained no stem subsidence or rotational instability was noted. The hip was once again trialed and confirmation of leg length and stability was performed. Soft tissue tension also appeared to be appropriate. At this point the hip was redislocated and the trunnion was cleaned and dried me ticulously in the appropriate size MDM femoral head was placed on the clean dry trunnion using a 12/14 Mccray taper. The hip was once again relocated and again taken through full range of motion. I did inject a cocktail of postoperative pain medication in the deep and superficial tissues. Copious irrigation was performed. Anatomic closure of the piriformis tendon was performed through drill holes in the greater trochanter. A #1 Vicryl 0 Vicryl was utilized in subcutaneous tissue and surgical abdiaziz were placed in the skin. A well-padded nonadherent dressing was applied. Patient was taken to PACU in stable condition. No complications were identified. Will follow standard postop protocol for total hip arthroplasty. My certified medical technician assistant played a vital role in the procedure beginning with positioning, holding retraction of soft tissues, positioning the leg to optimize visualization during the procedure and assisting with wound closure. Post-op Plan: DVT ppx; ASA 81 mg BID, thigh high compression stockings Follow up: in office in 2 weeks for wound check PT: to start POD #0 at hospital, outpatient PT should be arranged. Preoperative antibiotic: Ancef 2 grams IV Willy Gill DO Surgeon: Willy Gill founder and ceo: Chet Breen Type of Anesthesia: General Anesthesiologist: Sathish Snell Specimen's removed: bone Estimated Blood Loss (mL): 150 cc Fluids Replaced: 1000 cc crystalloid Admit VTE Documentation VTE Present on Admission: No VTE Mechan Device Prophylaxis: SCD's and Thigh High GRANT Hose VTE Pharm Prophylaxis ordered?: Yes
[2022-07-04] MEDS: Lisinopril 40 MG Tablet PO (15:08)
--- NOTE | 2022-07-04 16:07 | CASEMGMT ---
RN CM Face to Face with patient for initial transition planning/care coordination assessment. RN CM introduced self and role at [facility]. Patient lying in bed, alert and oriented, at bedside. Patient willing to participate in assessment and is able to answer all questions appropriately. Care providers, pharmacy, and demographics verified. Patient wishes to discharge home with outpatient therapy. Patient prefers script at discharge to schedule on his own at facility of his choice. Patient states he has no further needs or concerns at this time. CM to follow for discharge planning needs that may arise. PCP: [facility] Specialists: none [facility] retail at discharge. Insurance: [employer] Prescription Benefit: yes Living Will/HPOA: none LNOK: Living Arrangements: Patient lives with in a 1.5 story home with bed and bath on first floor. 2 steps and railing to enter the home. Patient states he was independent at home. Transportation: self, DME/HHC: Patient states he has cane, crutches, raised toilet, built in shower bench and cpap at home. Patient would benefit from walker at discharge. CM to assist with walker and script for outpatient therapy. Discussed possible HHC if patient has difficulty ambulating stairs and transferring from vehicle. Disposition Plan: Patient to discharge home with outpatient vs HHC, family support, and follow-up plans in place. Evie CARRILLO, RN, CM
[2022-07-04] MEDS: Cefazolin 1 GM/50 ML BAG IV (19:45)
[2022-07-04] MEDS: Atorvastatin Calcium 80 MG Tablet PO (21:52)
[2022-07-04] MEDS: Senna/Docusate Sodium 1 Tablet 2 TABLET PO (21:52)
[2022-07-05 02:28] VITALS: BP 107/65; PULSE 70; RESP 18; TEMP 36.4; O2SAT 94
[2022-07-05 03:00] VITALS: PULSE 54
[2022-07-05] MEDS: Cefazolin 1 GM/50 ML BAG IV (04:28)
[2022-07-05 06:30] LABS: Hematocrit 37.1 % (40-54); Hemoglobin 12.9 g/dL (13.0-16.5); Mean Corp Hgb Conc 34.8 g/dL (32-36); Mean Corpuscular Hgb 35.1 pg (27.0-32.0); Mean Corpuscular Volume 101.1 fL (80-94); Mean Platelet Vol. 10.6 fl (6.2-12.0); Platelet Count 202 K/mm3 (150-450); RBC Distribution Width CV 11.9 % (11.6-14.6); RBC Distribution Width SD 44.4 fl (35.1-43.9); Red Blood Count 3.67 M/mm3 (4.6-6.2); White Blood Count 15.2 K/mm3 (4.4-11.0)
[2022-07-05 06:46] LABS: Anion Gap 7 (5-15); BUN 20 mg/dL (7-18); BUN/Creat Ratio 18.9 RATIO (10-20); Calcium,Total 8.6 mg/dL (8.5-10.1); Chloride 97 mmol/L (98-107); Creatinine, Serum 1.06 mg/dL (0.70-1.30); EST Glomerular Filtration Rate 74 mL/min (>60); Est Glom Filt Rate - Afr Amer 89 mL/min (>60); Estimated Creatinine Clearance 35.19 ml/min; Glucose 137 mg/dL (74-106); Potassium 4.7 mmol/L (3.5-5.1); Sodium Level 131 mmol/L (136-145)
[2022-07-05] MEDS: Acetaminophen 500 MG Tablet 1000 MG PO (06:49)
[2022-07-05] MEDS: Rivaroxaban 10 MG Tablet PO (06:49)
[2022-07-05 07:08] VITALS: O2SAT 95
--- NOTE | 2022-07-05 07:35 | PN.ORTHO_ITS ---
Subjective Subjective Patient sitting up in bed, states pain is very well managed. Patient denies chest pain, shortness of breath, nausea vomiting or calf pain. Patient states he has been up walking. He feels he is ready to be discharged home today. [facility]. Objective Data Objective Data Vital Signs: Vital Signs Temp Pulse Resp BP Pulse Ox O2 Del Method O2 Flow Rate 97.5 F L 54 L 18 107/65 94 CPAP 2 07/05/22 02:28 07/05/22 03:00 07/05/22 02:28 07/05/22 02:28 07/05/22 02:28 07/05/22 02:28 07/04/22 19:35 Oxygen Flow Rate (L/min) 2 Oxygen Delivery Method CPAP Weight: 37.3 kg Body Mass Index (BMI) 35.1 Intake & Output: Intake and Output for Last 24 Hours 07/03/22 07/04/22 07/05/22 23:59 23:59 23:59 Intake Total 900 / 900 760 / 760 950 / 950 Output Total 1050 / 1050 1350 / 1350 Balance -150 / -150 -590 / -590 950 / 950 Lab / Micro Data Result Diagrams: 07/05/22 05:55 07/05/22 05:55 Labs: Laboratory Results - last 24 hr 07/05/22 05:55: WBC 15.2 H, RBC 3.67 L, Hgb 12.9 L, Hct 37.1 L, MCV 101.1 H, MCH 35.1 H, MCHC 34.8, RDW Std Deviation 44.4 H, RDW Coeff of Mark 11.9, Plt Count 202, MPV 10.6 07/05/22 05:55: Sodium 131 L, Potassium 4.7, Chloride 97 L, Carbon Dioxide 27.0, Anion Gap 7, BUN 20 H, Creatinine 1.06, Estim Creat Clear Calc 35.19, Est GFR (MDRD) Af Amer 89, Est GFR (MDRD) Non-Af 74, BUN/Creatinine Ratio 18.9, Glucose 137 H, Calcium 8.6 Radiography Diagnostic Testing: Radiology Impression Hip X-Ray 07/04/22 11:22 IMPRESSION: Status post left total hip replacement. There is good alignment. Postoperative soft tissue changes. Electronically Signed: Jae Stovall MD at 15:36 EDT , Physical Exam Narrative Upon exam, I found patient sitting up in bed alert oriented. Patient is in no respiratory distress speaking in full sentences. Patient moving upper extremities without limitations. The dressing was clean dry intact. Patient had good flexion-extension of the left hip with minimal pain. Patient good f lexion-extension of the left knee ankle and foot without pain. No calf tenderness. Neurovascular is otherwise intact. Const alert and oriented x3 General Appearance: cooperative and well developed HEENT normocephalic Eyes PERRL Resp normal respiratory effort Effort and Inspection: able to speak in complete sentences Cardio regular rate Extremity normal capillary refill Skin no rashes or lesions noted Neuro CN's II-XII intact bilaterally Psych mental status grossly normal and affect normal Assessment & Plan Assessment/Plan (1) Closed fracture of left hip: PLAN: 1. Continue all pain medications as prescribed 2. Xarelto 10 mg x 2 weeks due to patient's familiar history of factor V Leiden 3. Encourage incentive spirometry 4. Weight-bear as tolerated with walker 5. Ice to left hip 6. Continue GRANT hose during the day off at night 7. Patient can shower in 2 days 8. Dressing change at follow-up 9. Follow-up in 2 weeks with Shayne Breen PA-C call for appointment 10. Discharge home today when clear with medicine (2) Fall: PLAN: Plan 1. Acute impacted fracture of the left femoral neck, traumatic, status post mechanical fall Patient to be going for surgery today Pain is fairly controlled Will continue postoperative recommendations 2. Hypertension, continue lisinopril 3. Hyperlipidemia, continue statin 4. History of CVA, continue statin, aspirin on hold now 5. DVT prophylaxis per orthopedics
--- NOTE | 2022-07-05 07:40 | DCINST_ITS ---
Discharge Instructions Diet Discharge Diet: No restrictions Activity Discharge Activity: May Not Drive, May Shower (May shower in 2 days) and Use Walker May shower in (days): 2 May resume sexual activity in: No Restrictions Ice area for (Minutes): 30 Weight Bearing Status: Weight bearing as tolerated Keep extremity elevated above heart level: Operative Extremity Dressing / Incision Call your doctor if your incision/area has: Continuous Slow Oozing, Sudden Increased Bleeding, Increased Pain/ Swelling and Increased Redness Call your doctor if you observe: Fever of 101 or Higher Change Dressing in: leave in place till F/U Follow Up Care Please Follow Up With: Chet Breen PA-C When: 2 weeks Test Results: Test results from this visit will be discussed in further detail at your follow- up appointment, if applicable. Discharge Plan Admission Admit Date/Time: 07/03/22 09:17 Primary Reason for Your Visit: Fracture left hip, left total hip Attending Provider: Lyssa Vick Primary Care Provider: Emanuel Yo Consulting Providers: Gagandeep Sarmiento Discharge Orders/Prescriptions Prescriptions: New acetaminophen 500 mg Tablet 1,000 mg PO Q8 7 Days Qty: 42 0RF oxycodone 5 mg Tablet 5 - 10 mg PO Q4H PRN PRN (Reason: Pain Score 4-10) 7 Days Qty: 56 0RF Xarelto 10 mg Tablet 10 mg PO DAILY@0600 14 Days Qty: 14 0RF Rx Instructions: Xarelto x2 weeks, then will resume his daily aspirin 81 mg as prescribed preoperatively Continued lisinopril 40 mg Tablet 40 mg PO DAILY atorvastatin 80 mg Tablet 80 mg PO QHS 30 Days Qty: 30 0RF Discontinued aspirin 81 mg Tablet,Chewable 81 mg PO BREAKFAST 30 Days Qty: 30 0RF Referrals / Follow Up: Emanuel Yo MD [Primary Care Provider] - Disposition Disposition (needs filled in before D/C Order can be placed): Home, Self Care
[2022-07-05 08:00] VITALS: PULSE 64
[2022-07-05 08:40] VITALS: BP 112/68; PULSE 82; RESP 18; TEMP 36.8; O2SAT 98
[2022-07-05] MEDS: Lisinopril 40 MG Tablet PO (08:41)
[2022-07-05] MEDS: Senna/Docusate Sodium 1 Tablet 2 TABLET PO (08:41)
--- NOTE | 2022-07-05 09:27 | DCINST_ITS ---
Discharge Instructions Diet Discharge Diet: Low fat / Low cholesterol and 2000 mg Sodium Diet Activity Discharge Activity: Return to Normal Activity May shower in (days): 2 May resume sexual activity in: No Restrictions Ice area for (Minutes): 30 Weight Bearing Status: Weight bearing as tolerated Keep extremity elevated above heart level: Operative Extremity Dressing / Incision Call your doctor if your incision/area has: Continuous Slow Oozing, Sudden Increased Bleeding, Increased Pain/ Swelling and Increased Redness Call your doctor if you observe: Fever of 101 or Higher Follow Up Care Please Follow Up With: Chet Breen PA-C Test Results: Test results from this visit will be discussed in further detail at your follow- up appointment, if applicable. Discharge Plan Admission Admit Date/Time: 07/03/22 09:17 Primary Reason for Your Visit: Fracture left hip, left total hip Attending Provider: Lyssa Vick Primary Care Provider: Emanuel Yo Consulting Providers: Gagandeep Sarmiento Instructions Additional Instructions / Restrictions: ?Xarelto x2 weeks, then will resume his daily aspirin 81 mg as prescribed preoperatively Follow-up with therapy at [facility]. Discharge Orders/Prescriptions Prescriptions: New acetaminophen 500 mg Tablet 1,000 mg PO Q8 7 Days Qty: 42 0RF oxycodone 5 mg Tablet 5 - 10 mg PO Q4H PRN PRN (Reason: Pain Score 4-10) 7 Days Qty: 56 0RF Xarelto 10 mg Tablet 10 mg PO DAILY@0600 14 Days Qty: 14 0RF Rx Instructions: Xarelto x2 weeks, then will resume his daily aspirin 81 mg as prescribed preoperatively Continued lisinopril 40 mg Tablet 40 mg PO DAILY atorvastatin 80 mg Tablet 80 mg PO QHS 30 Days Qty: 30 0RF Discontinued aspirin 81 mg Tablet,Chewable 81 mg PO BREAKFAST 30 Days Qty: 30 0RF Referrals / Follow Up: Emanuel Yo MD [Primary Care Provider] - In 1 Week Willy Gill DO [Med Staff - Active Staff] - Within 2 Weeks Disposition Disposition (needs filled in before D/C Order can be placed): Home, Self Care
--- NOTE | 2022-07-05 09:32 | PCM.DC.SUM ---
Providers Date of Admission: 07/03/22 Date of Discharge: 07/05/22 Primary Care Physician: Dr. Emanuel Yo MD Consultations 07/03/22 10:13 Consult: Orthopedics Routine Consulting Provider: Gagandeep Sarmiento Reason for Consult: Impacted fracture of the left femoral neck. EMERGENT Consult: No MD Notified: Yes Date Notified: 07/03/22 Time Notified: 09:31 Method of Notification: ED Physician Initiated Reason For Visit: IMPACTED FRACTURE OF THE LEFT FEMORAL NECK Diagnosis Discharge Diagnosis (1) Closed fracture of left hip: Status: Acute Code(s): S72.002A - Fracture of unspecified part of neck of left femur, initial encounter for closed fracture (2) Fall: Status: Acute Code(s): W19.XXXA - Unspecified fall, initial encounter Plan 1. Acute impacted fracture of the left femoral neck, traumatic, mechanical 2. Hypertension 3. Hyperlipidemia 4. History of CVA Medications at Discharge Home Medications lisinopril 40 mg tablet 40 mg PO DAILY 12/11/21 atorvastatin 80 mg tablet 80 mg PO QHS 30 days #30 tabs 12/12/21 acetaminophen 500 mg tablet 1,000 mg PO Q8 7 days #42 tabs 07/05/22 oxycodone 5 mg tablet 5 - 10 mg PO Q4H PRN PRN Pain Score 4-10 7 days #56 tabs 07/05/22 rivaroxaban 10 mg tablet (Xarelto) 10 mg PO DAILY@0600 14 days #14 tabs 07/05/22 Hospital Course Operations None and total hip replacement (left hip, 07/04/22) Procedures None Summary of Care Provided Minutes Spent on Discharge: 35 Hospital Course: 66-year-old male with past medical history of recent CVA in December 2021, history of right hip fracture status post fall status post replacement, hypertension who presented to the emergency room [place] airport. Patient was trying to catch a plane, was running when he fell. He suffered an impacted left femoral neck fracture. Patient was admitted to the [facility] floor. Orthopedic surgery was consulted from the ED Patient underwent left total hip replacement on 07/04/2022. Postoperatively, there were no acute complaints. He remained stable. He was reevaluated the next morning. Patient was stable enough to be discharged. He had some reactive leukocytosis. He will need repeat blood work within a week with his primary care doctor. He will follow-up with orthopedic surgery as scheduled. Per orthopedics instruction, patient is to be on Xarelto for 2 weeks and then continue on aspirin daily. Physical Exam Narrative Physical exam: General: Alert, Oriented x3, Cooperative, obese HEENT: Atraumatic Oral: Moist Mucosa Neck: Supple Lungs: Clear to auscultation Cardiovascular: HS I+II, regular, no murmurs Abdomen: Bowel Sounds Present, Soft, Non Tender Extremities: Dressing over the left hip, ice packs/cooling mattress to the left hip, tenderness on palpation Skin: No rashes, No breakdown Neurological: Grossly intact Psych/Mental Status: Appropriate Weight / BMI Weight Weight: 37.3 kg Body Mass Index (BMI) 35.1 ABG / Lab / Microbiology Data Result Diagrams: 07/05/22 05:55 07/05/22 05:55 Laboratory: Laboratory Results - last 24 hr 07/05/22 05:55: WBC 15.2 H, RBC 3.67 L, Hgb 12.9 L, Hct 37.1 L, MCV 101.1 H, MCH 35.1 H, MCHC 34.8, RDW Std Deviation 44.4 H, RDW Coeff of Mark 11.9, Plt Count 202, MPV 10.6 07/05/22 05:55: Sodium 131 L, Potassium 4.7, Chloride 97 L, Carbon Dioxide 27.0, Anion Gap 7, BUN 20 H, Creatinine 1.06, Estim Creat Clear Calc 35.19, Est GFR (MDRD) Af Amer 89, Est GFR (MDRD) Non-Af 74, BUN/Creatinine Ratio 18.9, Glucose 137 H, Calcium 8.6 Radiography Diagnostic Testing: Radiology Impression Hip X-Ray 07/04/22 11:22 IMPRESSION: Status post left total hip replacement. There is good alignment. Postoperative soft tissue changes. Electronically Signed: Jae Stovall MD at 15:36 EDT , D/C Instructions Discharge Diet: Low fat / Low cholesterol and 2000 mg Sodium Diet May shower in (days): 2 May resume sexual activity in: No Restrictions Ice area for (Minutes): 30 Weight Bearing Status: Weight bearing as tolerated Keep extremity elevated above heart level: Operative Extremity Call your doctor if your incision/area has: Continuous Slow Oozing, Sudden Increased Bleeding, Increased Pain/ Swelling and Increased Redness Call your doctor if you observe: Fever of 101 or Higher Please Follow Up With: Chet Breen PA-C When: 2 weeks Meaningful Use Info Meaningful Use Diagnoses (Choose all that apply): None applicable Discharge Plan Admission Admit Date/Time: 07/03/22 09:17 Primary Reason for Your Visit: Fracture left hip, left total hip Attending Provider: Lyssa Vick Primary Care Provider: Emanuel Yo Consulting Providers: Gagandeep Sarmiento Instructions Additional Instructions / Restrictions: ?Xarelto x2 weeks, then will resume his daily aspirin 81 mg as prescribed preoperatively Follow-up with therapy at [facility]. You will need to repeat your blood work with your primary care doctor?CBCD and CMP within a week Discharge Orders/Prescriptions Prescriptions: New acetaminophen 500 mg Tablet 1,000 mg PO Q8 7 Days Qty: 42 0RF oxycodone 5 mg Tablet 5 - 10 mg PO Q4H PRN PRN (Reason: Pain Score 4-10) 7 Days Qty: 56 0RF Xarelto 10 mg Tablet 10 mg PO DAILY@0600 14 Days Qty: 14 0RF Rx Instructions: Xarelto x2 weeks, then will resume his daily aspirin 81 mg as prescribed preoperatively Continued lisinopril 40 mg Tablet 40 mg PO DAILY atorvastatin 80 mg Tablet 80 mg PO QHS 30 Days Qty: 30 0RF Discontinued aspirin 81 mg Tablet,Chewable 81 mg PO BREAKFAST 30 Days Qty: 30 0RF Referrals / Follow Up: Emanuel Yo MD [Primary Care Provider] - In 1 Week Willy Gill DO [Med Staff - Active Staff] - Within 2 Weeks Disposition Disposition (needs filled in before D/C Order can be placed): Home, Self Care Charges/Coding Visit Charges Inpatient E&M: 24929 Disch Hosp
--- NOTE | 2022-07-05 09:39 | CASEMGMT ---
Addendum entered by Maryam Villegas 07/05/22 11:18: TC to [facility] pharmacy, states Eliquis was ordered for pt instead and there is no copay. Requested meds to be delivered to room per nurse. Addendum entered by Maryam Villegas 07/05/22 10:39: Updated ortho Shayne Breen, pt cannot afford med, will order for 30 days. Addendum entered by Maryam Villegas 07/05/22 10:36: TC to 's office, spoke with Margi, states pt was on Plavix in February. Will update ortho that pt cannot afford med. Addendum entered by Maryam Villegas 07/05/22 10:34: KADE SHELL in to pt room, pt aware that [facility] does not have walkers and he chose [facility]. Referral sent to [facility] via [facility]. Pt states he cannot afford the xarelto. States he was on a med that started with a t in the past but does not know the name of it. Addendum entered by Maryam Villegas 07/05/22 10:22: Received notification that [facility] does not have FWW. TC to [facility] pharmacy, xarelto cost is $174. Attempted to use savings card and pt does not qualify as less than 30 days, attempted to use other handout and pharmacist states this is . TC to Xarelto savings card rep, states there is no savings for s/t xarelto currently. Original Note: KADE CM into pt room, pt sitting up in chair. Pt reports he worked with therapy and did well. Pt would like to go to [facility] for his therapy. Offered to set up first appt and pt states that he would like to do this on his own as he needs to look at his schedule. He states his will transport him. Pt is in need of a FWW. Provided pt with a local verbal in network list of DME companies, pt chose [employer]. Provided pt with outpt therapy script. Referral sent to [facility] via [facility] for [facility]WW. Email to liaison as well.
[2022-07-05 12:22] VITALS: BP 97/69; PULSE 97; RESP 16; TEMP 37.3; O2SAT 93
== END 2022-07-05 12:41 | disposition home or self-care (01) | DRG 522 ==
LOC: ED 08:29 → MS3 09:54
PROVIDERS: Internal Medicine; Orthopaedic Surgery; Admitting Provider Internal Medicine; Emergency Provider Emergency Medicine; PCP Family Medicine; Visit Provider Internal Medicine
PROC: 0SRB0JZ Replacement of Left Hip Joint with Synthetic Substitute, Open Approach (ICD-10-PCS; CPT 27130; principal; 2022-07-04 12:05)
DX: S72.012A Unspecified intracapsular fracture of left femur, initial encounter for closed fracture (principal); E78.5 Hyperlipidemia, unspecified; I10 Essential (primary) hypertension; W01.0XXA Fall on same level from slipping, tripping and stumbling without subsequent striking against object, initial encounter; Z96.641 Presence of right artificial hip joint; Z79.82 Long term (current) use of aspirin; Z79.899 Other long term (current) drug therapy; Z86.73 Personal history of transient ischemic attack (TIA), and cerebral infarction without residual deficits; Y93.9 Activity, unspecified; Y99.9 Unspecified external cause status; Y92.520 Airport as the place of occurrence of the external cause
CPT/HCPCS: 36415; 71045; 73502; 80048; 80053; 85025; 85027; 85610; 85730; 86850; 86900; 86901; 88305; 88311; 93005; 97162; 97166; 99251; 99285; C1776; J7120; A4216; G0463; J2405

== ENCOUNTER → 2022-07-14 | Outpatient (CLI) | payer MEDICARE, SELFPAY ==
--- NOTE | 2022-07-14 10:04 | RAD_ITS ---
STUDY: X-RAY - LEFT ANKLE REASON FOR EXAM: Male, 66 years old patient with left-sided ankle pain. TECHNIQUE: Three view(s) of the ankle. COMPARISON: None. FINDINGS: Normal visualized distal tibia and fibula. Normal medial and lateral malleoli. Normal tibiotalar articulation and ankle mortise. There is a small talar beak. There are degenerative changes of intertarsal joint relations. There is no demonstrated fracture. There is mild soft tissue swelling of ankle. RAD/Ankle min 3 Views IMPRESSION: 1. Soft tissue swelling without obvious fracture. 2. 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 Electronically Signed: Amanda Sarmiento MD at 3:31 EDT ,
--- NOTE | 2022-07-14 10:04 | RAD_ITS ---
STUDY: X-RAY - LUMBOSACRAL SPINE REASON FOR EXAM: Male, 66 years old patient with weakness of foot. TECHNIQUE: 6 view(s) of the lumbosacral spine were obtained. COMPARISON: Prior comparison studies are not available for review at this time. FINDINGS: Lateral images were obtained of the patient in neutral, flexion and extension. There is minimal range of motion. There is straightening of the normal lumbar lordosis. There is mild curvature of the lumbar spine with convexity towards the left. There is multilevel endplate spondylosis of the lumbar vertebrae. There is multi-level degenerative disc disease with multi-level disc space narrowing. Normal bilateral sacral ala, sacroiliac joints, and visualized sacrum. Patient has bilateral total hip arthroplasties. Surgical skin abdiaziz are visible in the region of the left hip. RAD/L/S Spine w Bend Min 6 Vw IMPRESSION: 1. Decreased range of motion. 2. Moderately severe multilevel degenerative changes of the lumbar spine. Electronically Signed: Amanda Sarmiento MD at 3:26 EDT ,
[2022-07-14 12:45] LABS: AST(SGOT) 60 U/L (15-37); Alanine Aminotransfer ALT/SGPT 87 U/L (16-61); Alkaline Phosphatase 208 U/L (45-117); Anion Gap 8 (5-15); BUN 18 mg/dL (7-18); Bilirubin, Direct 0.36 mg/dL (0.00-0.30); Calcium,Total 9.3 mg/dL (8.5-10.1); Chloride 100 mmol/L (98-107); Creatinine, Serum 0.94 mg/dL (0.70-1.30); EST Glomerular Filtration Rate 84 mL/min (>60); Est Glom Filt Rate - Afr Amer 102 mL/min (>60); Globulin 4.2 g/dL (2.2-4.2); Glucose 111 mg/dL (74-106); Potassium 4.9 mmol/L (3.5-5.1); Protein, Total 7.2 g/dL (6.4-8.2); Sodium Level 132 mmol/L (136-145); Thyroid Stim Hormone (TSH) 2.17 uIU/mL (0.358-3.74)
[2022-07-14 12:51] LABS: PTHIN 53.2 pg/mL (18.4-80.1)
== END | disposition home or self-care (01) ==
LOC: MTLAB 10:00
PROVIDERS: PCP Family Medicine; Referring Provider Family Medicine; Visit Provider Family Medicine
DX: S72.002A Fracture of unspecified part of neck of left femur, initial encounter for closed fracture (principal); R79.89 Other specified abnormal findings of blood chemistry; I10 Essential (primary) hypertension; M25.572 Pain in left ankle and joints of left foot; R29.898 Other symptoms and signs involving the musculoskeletal system
CPT/HCPCS: 36415; 72114; 73610; 80048; 80076; 82330; 83970; 84443

== ENCOUNTER 2022-08-16 10:25 | Outpatient (CLI) | payer MEDICARE, SELFPAY ==
[2022-08-16 12:40] LABS: Albumin, Serum 3.5 g/dL (3.2-5.0); BUN 14 mg/dL (7-18); BUN/Creat Ratio 13.9 RATIO (10-20); Calcium,Total 9.6 mg/dL (8.5-10.1); Chloride 100 mmol/L (98-107); Creatinine, Serum 1.01 mg/dL (0.70-1.30); EST Glomerular Filtration Rate 78 mL/min (>60); Est Glom Filt Rate - Afr Amer 94 mL/min (>60); Glucose 106 mg/dL (74-106); Phosphorus 3.7 mg/dL (2.5-4.9); Potassium 4.8 mmol/L (3.5-5.1); Sodium Level 133 mmol/L (136-145)
== END 2022-08-16 23:59 | disposition home or self-care (01) ==
LOC: MFPLAB 10:29
PROVIDERS: PCP Family Medicine; Visit Provider Family Medicine
DX: R79.89 Other specified abnormal findings of blood chemistry (principal)
CPT/HCPCS: 36415; 80069

== ENCOUNTER 2023-06-28 16:21 | Outpatient (CLI) | payer MEDICARE, SELFPAY ==
[2023-06-28 17:36] LABS: Hematocrit 46.7 % (40-54); Hemoglobin 15.9 g/dL (13.0-16.5); Mean Corpuscular Hgb 34.3 pg (27.0-32.0); Mean Corpuscular Volume 100.9 fL (80-94); Mean Platelet Vol. 10.5 fl (6.2-12.0); Platelet Count 247 K/mm3 (150-450); Red Blood Count 4.63 M/mm3 (4.6-6.2); White Blood Count 9.7 K/mm3 (4.4-11.0)
[2023-06-28 18:21] LABS: ALB/GLOB Ratio 0.8 RATIO (0.9-2.4); AST(SGOT) 45 U/L (15-37); Alanine Aminotransfer ALT/SGPT 76 U/L (16-61); Albumin, Serum 3.4 g/dL (3.2-5.0); Alkaline Phosphatase 101 U/L (45-117); Anion Gap 5 (5-15); BUN 12 mg/dL (7-18); Calcium,Total 9.5 mg/dL (8.5-10.1); Chloride 103 mmol/L (98-107); Cholesterol 128 mg/dL (200); Creatinine, Serum 1.09 mg/dL (0.70-1.30); EST Glomerular Filtration Rate 71 mL/min (>60); Est Glom Filt Rate - Afr Amer 86 mL/min (>60); Globulin 4.1 g/dL (2.2-4.2); Glucose 103 mg/dL (74-106); High Density Lipoprotein 68 mg/dL; Potassium 4.6 mmol/L (3.5-5.1); Protein, Total 7.5 g/dL (6.4-8.2); Sodium Level 136 mmol/L (136-145); Thyroid Stim Hormone (TSH) 2.28 uIU/mL (0.358-3.74); Triglycerides 120 mg/dL; Very Low Density Lipoprotein 24 mg/dL (5-40)
[2023-06-28 18:27] LABS: Microalbumin,Random Urine 10.2 mg/L (NO RANGE EST.)
== END 2023-06-28 23:59 | disposition home or self-care (01) ==
LOC: MTLAB 16:23
PROVIDERS: PCP Family Medicine; Referring Provider Family Medicine; Visit Provider Family Medicine
DX: Z00.00 Encounter for general adult medical examination without abnormal findings (principal); Z86.73 Personal history of transient ischemic attack (TIA), and cerebral infarction without residual deficits; E78.5 Hyperlipidemia, unspecified; R73.01 Impaired fasting glucose; Z12.5 Encounter for screening for malignant neoplasm of prostate
CPT/HCPCS: 36415; 80053; 80061; 82043; 84153; 84443; 85027; G0103

== ENCOUNTER → 2023-08-16 | Outpatient (CLI) | payer MEDICARE, SELFPAY ==
[2023-08-16 15:32] LABS: Ferritin 1240 ng/mL (26-388); GGTP 206 U/L (15-85); Iron 166 ug/dL (65-175)
[2023-08-17 08:41] LABS: Hepatitis B Surface Antibody Non-Reactive
[2023-08-18 06:09] LABS: HEPATITIS B SURFACE AG Negative (Negative); Hep C Antibodies Non Reactive (Non Reactive); Hepatitis A AB, Total Negative (Negative); Hepatitis A IgM Antibody Negative (Negative); Hepatitis B Core AB IgM Negative (Negative)
[2023-08-21 11:10] LABS: Iron Binding Capacity,Total 314 ug/dL (250-450)
[2023-08-22 14:09] LABS: Transferrin 245 mg/dL (177-329)
== END | disposition home or self-care (01) ==
LOC: MTLAB 13:50
PROVIDERS: PCP Family Medicine; Referring Provider Family Medicine; Visit Provider Family Medicine
DX: R79.89 Other specified abnormal findings of blood chemistry (principal)
CPT/HCPCS: 36415; 80074; 82728; 82977; 83540; 83550; 84466; 86706; 86708

== ENCOUNTER → 2023-08-31 | Outpatient (CLI) | payer MEDICARE, SELFPAY ==
--- NOTE | 2023-08-31 07:28 | US_ITS ---
STUDY: ABDOMINAL ULTRASOUND - RIGHT UPPER QUADRANT REASON FOR VISIT: Male, 67 years old elevated LFT''s TECHNIQUE: Ultrasound evaluation of the right upper quadrant was performed with real-time and static stiles-scale imaging. TECHNICAL QUALITY: Adequate. COMPARISON: None. FINDINGS: Liver: The liver is enlarged and measures 18.6 cm. There is increased echogenicity consistent with fatty infiltration. The bile ducts are within normal limits. There is hepatic color flow. The direction of portal flow is hepatopetal. There is no demonstrated mass lesion. Gallbladder: Normal distended gallbladder. The gallbladder wall measures 2.4 mm. There is a negative sonographic Mcmillan''s sign. There is no pericholecystic fluid. There are no gallstones. Common Bile Duct (C.B.D.): The common bile duct measures 4.3 mm. Pancreas: Normal size of the head, body and tail of the pancreas. There is normal echogenicity of the pancreas. There is no demonstrated pancreatic mass or cyst. Right Kidney: Normal size of the right kidney. The right kidney measures 11.9 cm x 5.3 cm x 6.6 cm. Normal renal cortex. The right cortex measures 1.9 cm. There is no demonstrated renal mass or cyst. There is no right hydronephrosis. US/Abdomen Limited IMPRESSION: Hepatomegaly and fatty infiltration of the liver. Electronically Signed: Jae Stovall MD at 13:23 EST ,
[2023-08-31 09:39] LABS: Ferritin 1134 ng/mL (26-388)
[2023-09-01 05:07] LABS: Transferrin 226 mg/dL (177-329)
== END | disposition home or self-care (01) ==
PROVIDERS: PCP Family Medicine; Referring Provider Family Medicine; Visit Provider Family Medicine
DX: R79.89 Other specified abnormal findings of blood chemistry (principal)
CPT/HCPCS: 36415; 76705; 82728; 84466

== ENCOUNTER → 2023-10-30 | Outpatient (CLI) | payer MEDICARE, SELFPAY ==
--- NOTE | 2023-10-30 07:38 | US_ITS ---
STUDY: ABDOMINAL ULTRASOUND - RIGHT UPPER QUADRANT REASON FOR VISIT: Male, 67 years old R/O CIRRHOSIS OF LIVER TECHNIQUE: Ultrasound evaluation of the right upper quadrant was performed with real-time and static stiles-scale imaging. TECHNICAL QUALITY: Adequate. COMPARISON: None. FINDINGS: Liver: The liver is enlarged and measures 19.2 cm. There is increased echogenicity consistent with fatty infiltration. The bile ducts are within normal limits. There is hepatic color flow. The direction of portal flow is hepatopetal. There is no demonstrated mass lesion. Gallbladder: Normal distended gallbladder. The gallbladder wall measures 1.1 mm. There is a negative sonographic Mcmillan''s sign. There is no pericholecystic fluid. There are no gallstones. Common Bile Duct (C.B.D.): The common bile duct measures 3.1 mm. Pancreas: Normal size of the head, body and tail of the pancreas. There is increased echogenicity of the pancreas. There is no demonstrated pancreatic mass or cyst. Right Kidney: Normal size of the right kidney. The right kidney measures 11.9 cm x 5.8 cm x 6.8 cm. Normal renal cortex. The right cortex measures 1.6 cm. There is no demonstrated renal mass or cyst. There is no right hydronephrosis. IMPRESSION: Hepatomegaly and fatty infiltration of the liver. Electronically Signed: Jae Stovall MD at 13:59 EST , STUDY: ABDOMINAL ULTRASOUND - ELASTOGRAPHY REASON FOR VISIT: Male, 67 years old. TECHNIQUE: Liver stiffness measurements were obtained on a [employer] 85 ultrasound machine using a CA 1-7 probe following the SRU guidelines. 3 measurements were obtained using a 2-D-SWE method. TheIQR/M was 12% suggesting a quality data set. TECHNICAL QUALITY: Adequate. COMPARISON: None. FINDINGS: Liver: Fatty infiltration of the liver. Median liver stiffness measured 9.1 kPa. Abdomen: There is no demonstrated mass lesion. 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 Electronically Signed: Jae Stovall MD at 14:05 EST ,
--- OUTSIDE RECORDS SUMMARY | 2023-10-30 07:49 | XMS RPT_ITS | CCD ---
Author Name Unknown Address [address] [place] [address] Organization [facility] Care Team Providers Care Produce Specialist Name Role Phone KASIE ANTONIO, DR GAITAN [facility] En[facility]ters Encounter Date Encounter Type Care Provider Facility Start: 01-19-[address] KANDY FERRO MD Fa cility:B Payers Date Payer Category Payer Unknown [id number] 1955 Unknown [id number] Summary Purpose Family History No Family History Records Found Advance Directives No Advanced Directives Records Found Additional Source Comments (unrecognized sect ion and content) No Status Records Found INFORMATION SOURCE (unrecogn ized section and content) FOR RECORDS PERTAINING TO PATIENTS WHO ARE OR HAVE BEEN ENROLLED IN A CHEMICAL DEPENDENCY/SUBSTANCEABUSE PROGRAM, SOME INFORMATION MAY BE OMITTED. This clinical summary was aggregated from multiple sources. Caution should be exercised in using it in the provision of clinical care. This summary normalizes information from multiple sources, and as a consequence, information in this document may materially change the coding, format and clinical context of patient data. In addition, data may be omitted in some cases. CLINICAL DECISIONS SHOULD BE BASED ON THE PRIMARY CLINICAL RECORDS. The [facility]. provides no warranty or guarantee of the accuracy or completeness of information in this document.
[2023-10-30 08:50] LABS: Absolute Lymphocyte Count 2.09 X10^3/uL (0.83-4.51); Absolute Neutrophil Count 3.8 X10^3/uL (2.0-7.7); Basophil# 0.06 X10^3/uL; Basophil% 0.9 % (0-1); Eosinophil# 0.17 X10^3/uL; Eosinophils% 2.4 % (0-5); Hematocrit 48.8 % (40-54); Hemoglobin 16.5 g/dL (13.0-16.5); Lymphocyte # 2.09 X10^3/ul (0.83-4.51); Mean Corp Hgb Conc 33.8 g/dL (32-36); Mean Corpuscular Hgb 33.7 pg (27.0-32.0); Mean Corpuscular Volume 99.8 fL (80-94); Mean Platelet Vol. 10.5 fl (6.2-12.0); Monocyte# 0.79 X10^3/uL; Monocyte% 11.3 % (0-10); NRBC Flagged by Analyzer 0 % (0-5); Neutrophil # 3.83 X10^3/uL (2.7-7.7); Platelet Count 232 K/mm3 (150-450); RBC Distribution Width SD 44.7 fl (35.1-43.9); RET-HE 36.6 pg (30-35); Red Blood Count 4.89 M/mm3 (4.6-6.2); Reticulocyte Count 1.87 % (0.5-1.5)
[2023-10-30 09:12] LABS: ALB/GLOB Ratio 0.9 RATIO (0.9-2.4); AST(SGOT) 36 U/L (15-37); Alanine Aminotransfer ALT/SGPT 56 U/L (16-61); Albumin, Serum 3.5 g/dL (3.2-5.0); Alkaline Phosphatase 96 U/L (45-117); Anion Gap 5 (5-15); BUN 11 mg/dL (7-18); BUN/Creat Ratio 10.5 RATIO (10-20); Calcium,Total 9.2 mg/dL (8.5-10.1); Chloride 103 mmol/L (98-107); Creatinine, Serum 1.05 mg/dL (0.70-1.30); EST Glomerular Filtration Rate 74 mL/min (>60); Est Glom Filt Rate - Afr Amer 90 mL/min (>60); Ferritin 878 ng/mL (26-388); Glucose 145 mg/dL (74-106); Iron 186 ug/dL (65-175); Iron Binding Capacity,Total 298 ug/dL (250-450); LDH 129 U/L (87-241); PERCENT IRON SATURATION 62.4 % (15.0-55.0); Potassium 4.5 mmol/L (3.5-5.1); Protein, Total 7.5 g/dL (6.4-8.2); Sodium Level 135 mmol/L (136-145)
[2023-10-30 09:28] LABS: CRP < 2.90 mg/L (0.0-3.0); GGTP 136 U/L (15-85)
[2023-10-30 09:30] LABS: Erythrocyte Sedimentation Rate 8 mm/hr (0-20)
[2023-10-30 09:44] LABS: International Normalized Ratio 1.1; Prothrombin Time (Protime)PT. 14.5 SECONDS (11.7-14.9)
[2023-10-30 09:45] LABS: Partial Thromboplast Time 28.5 Seconds (24.1-36.2)
[2023-10-31 04:07] LABS: AFP, Tumor Marker 9.4 ng/mL (0.0-8.4)
[2023-10-31 16:09] LABS: Erythropoietin 8.7 mIU/mL (2.6-18.5)
== END | disposition home or self-care (01) ==
PROVIDERS: PCP Family Medicine; Referring Provider Internal Medicine Medical Oncology; Visit Provider Internal Medicine Medical Oncology
DX: E83.110 Hereditary hemochromatosis (principal); R79.89 Other specified abnormal findings of blood chemistry
CPT/HCPCS: 36415; 76705; 76981; 80053; 82105; 82668; 82728; 82977; 83540; 83550; 83615; 85025; 85045; 85610; 85652; 85730; 86140

== ENCOUNTER → 2024-07-03 | Outpatient (CLI) | payer MEDICARE, SELFPAY ==
[2024-07-03 10:34] LABS: Hematocrit 44.6 % (40-54); Hemoglobin 15.5 g/dL (13.0-16.5); Mean Corp Hgb Conc 34.8 g/dL (32-36); Mean Corpuscular Hgb 34.1 pg (27.0-32.0); Platelet Count 242 K/mm3 (150-450); RBC Distribution Width CV 12.6 % (11.6-14.6); RBC Distribution Width SD 45.4 fl (35.1-43.9); Red Blood Count 4.55 M/mm3 (4.6-6.2); White Blood Count 6.4 K/mm3 (4.4-11.0)
[2024-07-03 10:55] LABS: ALB/GLOB Ratio 0.9 RATIO (0.9-2.4); AST(SGOT) 26 U/L (15-37); Alanine Aminotransfer ALT/SGPT 39 U/L (16-61); Albumin, Serum 3.6 g/dL (3.2-5.0); Alkaline Phosphatase 113 U/L (45-117); Anion Gap 6 (5-15); BUN 10 mg/dL (7-18); BUN/Creat Ratio 10.5 RATIO (10-20); Calcium,Total 9.4 mg/dL (8.5-10.1); Chloride 105 mmol/L (98-107); Cholesterol 125 mg/dL (200); Creatinine, Serum 0.95 mg/dL (0.70-1.30); EST Glomerular Filtration Rate 83 mL/min (>60); Est Glom Filt Rate - Afr Amer 101 mL/min (>60); Ferritin 598 ng/mL (26-388); Globulin 3.9 g/dL (2.2-4.2); Glucose 109 mg/dL (74-106); High Density Lipoprotein 59 mg/dL; Iron 118 ug/dL (65-175); Potassium 4.3 mmol/L (3.5-5.1); Protein, Total 7.5 g/dL (6.4-8.2); Sodium Level 136 mmol/L (136-145); Triglycerides 103 mg/dL; Very Low Density Lipoprotein 21 mg/dL (5-40)
[2024-07-04 08:13] LABS: GGTP 78 IU/L (0-65)
== END | disposition home or self-care (01) ==
LOC: MFPLAB 08:22
PROVIDERS: PCP Family Medicine; Visit Provider Family Medicine
DX: E78.5 Hyperlipidemia, unspecified (principal); K74.00 Hepatic fibrosis, unspecified
CPT/HCPCS: 36415; 80053; 80061; 82728; 82977; 83540; 85027

== ENCOUNTER → 2025-01-06 | Outpatient (CLI) | payer MEDICARE, SELFPAY ==
[2025-01-06 11:46] LABS: ALB/GLOB Ratio 1.2 RATIO (0.9-2.4); AST(SGOT) 35 U/L (<=37); Alanine Aminotransfer ALT/SGPT 44 U/L (<=46); Albumin, Serum 4.4 g/dL (3.4-4.8); Alkaline Phosphatase 90 U/L (40-129); Anion Gap 12 (5-15); BUN 15 mg/dL (4-19); BUN/Creat Ratio 15.3 RATIO (10-20); Calcium,Total 9.9 mg/dL (7.6-11.0); Carbon Dioxide 23.5 mmol/L (21.0-32.0); Chloride 100 mmol/L (98-108); EST Glomerular Filtration Rate 80 (>60); Globulin 3.6 g/dL (2.2-4.2); Glucose 127 mg/dL (70-99); PSA,Total - Annual Screen 0.66 ng/mL (0.02-4.00); Potassium 5.2 mmol/L (3.3-5.1); Sodium Level 136 mmol/L (133-145); Total Bilirubin 0.69 mg/dL (0.00-1.30)
[2025-01-07 04:07] LABS: GGTP 94 IU/L (0-65)
== END | disposition home or self-care (01) ==
LOC: MFPLAB 09:30
PROVIDERS: PCP Family Medicine; Referring Provider Family Medicine; Visit Provider Family Medicine
DX: I10 Essential (primary) hypertension (principal); K74.00 Hepatic fibrosis, unspecified; Z12.5 Encounter for screening for malignant neoplasm of prostate
CPT/HCPCS: 36415; 80053; 82746; 82977; 84153; G0103

== ENCOUNTER → 2025-07-07 | Outpatient (CLI) | payer MEDICARE, SELFPAY ==
[2025-07-07 10:22] LABS: Hematocrit 46.5 % (40-54); Hemoglobin 15.9 g/dL (13.0-16.5); Immature Granulocytes Count 0.020 X10^3/uL (0.0-0.0); Mean Corp Hgb Conc 34.2 g/dL (32-36); Mean Corpuscular Volume 96.3 fL (80-94); Mean Platelet Vol. 10.6 fl (6.2-12.0); NRBC Flagged by Analyzer 0 % (0-5); Platelet Count 265 K/mm3 (150-450); RBC Distribution Width CV 11.9 % (11.6-14.6); RBC Distribution Width SD 42.0 fl (35.1-43.9); Red Blood Count 4.83 M/mm3 (4.6-6.2); White Blood Count 7.1 K/mm3 (4.4-11.0)
[2025-07-07 10:40] LABS: Cholesterol 145 mg/dL (<=200); Low Density Lipoprotein Calc. 67 mg/dL; Triglycerides 134 mg/dL; Very Low Density Lipoprotein 27 mg/dL (5-40); cholesterol:hdl ratio screen 2.64
[2025-07-07 11:05] LABS: Iron 107 ug/dL (65-175); Iron Binding Capacity,Total 280 ug/dL (250-450); Iron Binding Capacity,Unsat 173 ug/dL (228-428)
== END | disposition home or self-care (01) ==
LOC: MTLAB 08:25
PROVIDERS: PCP Family Medicine; Referring Provider Family Medicine; Visit Provider Family Medicine
DX: E83.19 Other disorders of iron metabolism (principal); E78.5 Hyperlipidemia, unspecified
CPT/HCPCS: 36415; 80061; 83540; 83550; 85025